=== PATIENT | female | born 1950 | race Caucasian/White ===

== ENCOUNTER 2016-10-10 07:17 | Day surgery (SDC) | payer MEDICARE, OTHER ==
[2016-10-10] MEDS ORDERED: LACTATED RINGERS 1,000 ML IV ONE (07:42)
[2016-10-10] MEDS ORDERED: fentaNYL 100 MCG/2 ML VIAL IVP ONE (08:34)
[2016-10-10] MEDS ORDERED: MIDAZOLAM 2 MG/2 ML VIAL IVP ONE (08:34)
== END 2016-10-10 07:18 | disposition home or self-care (01) ==
PROC: 0DBH8ZX Excision of Cecum, Via Natural or Artificial Opening Endoscopic, Diagnostic (ICD-10-PCS; principal; 2016-10-10 08:30)
DX: R19.4 Change in bowel habit (principal); D12.0 Benign neoplasm of cecum; I10 Essential (primary) hypertension; K21.9 Gastro-esophageal reflux disease without esophagitis
CPT/HCPCS: 45385; J7120

== ENCOUNTER 2016-12-26 09:32 | Day surgery (SDC) | payer MEDICARE, OTHER ==
[2016-12-26] MEDS ORDERED: LACTATED RINGERS 1,000 ML IV ONE ×2 (09:59→12:01)
[2016-12-26] MEDS ORDERED: MIDAZOLAM 2 MG/2 ML VIAL IVP ONE (11:22)
[2016-12-26] MEDS ORDERED: fentaNYL 100 MCG/2 ML VIAL IVP ONE (11:22)
[2016-12-26 12:21] VITALS: BP 98/51
== END 2016-12-26 09:33 | disposition home or self-care (01) ==
LOC: SDS 09:32
PROVIDERS: ATTEND Internal Medicine
PROC: 0DB68ZX Excision of Stomach, Via Natural or Artificial Opening Endoscopic, Diagnostic (ICD-10-PCS; 2016-12-26)
PROC: 0DB58ZX Excision of Esophagus, Via Natural or Artificial Opening Endoscopic, Diagnostic (ICD-10-PCS; principal; 2016-12-26 11:00)
DX: R13.14 Dysphagia, pharyngoesophageal phase (principal); R12 Heartburn; K44.9 Diaphragmatic hernia without obstruction or gangrene; K59.09 Other constipation; I10 Essential (primary) hypertension; Z86.010 Personal history of colon polyps
CPT/HCPCS: 43239; J7120; 88305

== ENCOUNTER 2017-10-10 11:13 | Emergency (ER) | payer MEDICARE, OTHER ==
--- NOTE | 2017-10-10 11:56 | ED Physician Documentation ---
PD HPI ABD PAIN - Stated complaint Stated Complaint: ABDOMAL PX, NAUSEA - Chief complaint Chief Complaint: Abd Pain - History obtained from History obtained from: Patient - History of Present Illness Timing - onset: How many days ago (few) Timing - duration: Days (few) Timing - details: Gradual onset, Still present, Waxing and waning Quality: Cramping, Aching Location: Periumbilical, LLQ Radiation: Lower back Improved by: No: Eating Worsened by: Moving. No: Eating, Palpation Associated symptoms: Constipation (tried Mag Citrate and fleets enema twice yesterday without stool output. Having more cramps today. History of constipation. Did not call her GI.). No: Fever, Nausea, Vomiting, Diarrhea, Dysuria Similar symptoms before: Diagnosis (constipation but usually not as bad as current cramping pains.) Review of Systems Constitutional: denies: Fever, Chills Nose: denies: Rhinorrhea / runny nose, Congestion Throat: denies: Sore throat Cardiac: denies: Chest pain / pressure, Palpitations Respiratory: denies: Dyspnea, Cough GI: reports: Abdominal Pain, Constipation. denies: Abdominal Swelling, Nausea, Vomiting, Diarrhea, Bloody / black stool : denies: Dysuria, Frequency Skin: denies: Rash, Lesions Neurologic: reports: Generalized weakness. denies: Focal weakness, Numbness PD PAST MEDICAL HISTORY - Past Medical History Cardiovascular: Hypertension Respiratory: None Neuro: None Endocrine/Autoimmune: None GI: GERD, Chronic constipation CASINO MANAGER: None : None HEENT: None Psych: None Musculoskeletal: None Derm: Other - Past Surgical History Past Surgical History: Yes General: Colonoscopy Ortho: Rotator cuff repair /CASINO MANAGER: Tubal ligation, Hysterectomy, Other - Present Medications Home Medications: Ambulatory Orders Medication Instructions Recorded Confirmed hydroCHLOROthiazide 25 mg PO DAILY 05/05/16 12/26/16 [Hydrochlorothiazide] Ergocalciferol [Vitamin D2] 50,000 units PO OAW 10/09/16 12/26/16 Lubiprostone [Amitiza] 8 mcg PO BID 10/09/16 12/26/16 Potassium Chloride [K-Dur] 40 meq PO DAILY 10/09/16 12/19/16 Meclizine [Antivert] 1 cap PO PRN PRN 10/10/16 12/26/16 Promethazine [Phenergan] 1 cap PO PRN PRN 10/10/16 12/19/16 Omeprazole 40 mg PO DAILY 12/19/16 12/26/16 Dicyclomine [Bentyl] 10 mg PO QID PRN #10 capsule 10/10/17 Lubiprostone [Amitiza] 10/10/17 raNITIdine [Zantac] 10/10/17 - Allergies Allergies/Adverse Reactions: Allergies Allergy/AdvReac Type Severity Reaction Status Date / Time No Known Drug Allergies Allergy Verified 12/19/16 11:25 - Social History Does the pt smoke?: No Smoking Status: Never smoker Does the pt drink ETOH?: No Does the pt have substance abuse?: No - Family History Family history: reports: Non contributory - Immunizations Immunizations are current?: Yes PD ED PE NORMAL - Vitals Vital signs reviewed: Yes - General General: Alert and oriented X 3, No acute distress, Well developed/nourished - Neck Neck: Supple, no meningeal sign, No adenopathy - Cardiac Cardiac: RRR, No murmur - Respiratory Respiratory: Clear bilaterally - Abdomen Abdomen: Soft, Non distended, No organomegaly, Other (mild tender left abdomen without percussion nor rebound. ). No: Normal bowel sounds (increased and hyperactive) - Female Female : Deferred - Rectal Rectal: Deferred - Back Back: No CVA TTP - Derm Derm: Normal color, Warm and dry Results - Vitals Vitals: Vital Signs - 24 hr 10/10/17 10/10/17 11:17 15:11 Temperature 36.6 C Heart Rate 73 67 Respiratory 17 16 Rate Blood Pressure 150/63 H 131/74 H O2 Saturation 99 99 Oxygen O2 Source Room air - Labs Labs: Laboratory Tests 10/10/17 10/10/17 10/10/17 12:35 12:35 12:50 WBC 5.3 RBC 5.40 Hgb 15.5 Hct 44.8 MCV 82.9 MCH 28.7 MCHC 34.6 RDW 14.3 Plt Count 217 MPV 7.4 L Neut # 3.1 Lymph # 1.7 [place] # 0.4 Eos # 0.1 Baso # 0.1 Absolute Nucleated RBC 0.00 Nucleated RBC % 0.0 ESR 1 Sodium Potassium Chloride Carbon Dioxide Anion Gap BUN Creatinine Estimated GFR (MDRD) Glucose Calcium Magnesium Total Bilirubin AST ALT Alkaline Phosphatase Total Protein Albumin Globulin Albumin/Globulin Ratio Lipase Urine Color YELLOW Urine Clarity CLEAR Urine pH 7.0 Ur Specific [place] 1.010 Urine Protein NEGATIVE Urine Glucose (UA) NEGATIVE Urine Ketones 15 H Urine Occult Blood NEGATIVE Urine Nitrite NEGATIVE Urine Bilirubin NEGATIVE Urine Urobilinogen 0.2 (NORMAL) Ur Leukocyte Esterase NEGATIVE Ur Microscopic Review NOT INDICATED Urine Culture Comments NOT INDICATED 10/10/17 13:09 WBC RBC Hgb Hct MCV MCH MCHC RDW Plt Count MPV Neut # Lymph # [place] # Eos # Baso # Absolute Nucleated RBC Nucleated RBC % ESR Sodium 136 Potassium 3.5 Chloride 98 L Carbon Dioxide 31 Anion Gap 7.0 BUN 8 Creatinine 0.4 Estimated GFR (MDRD) 160 Glucose 95 Calcium 8.9 Magnesium 2.0 Total Bilirubin 0.8 AST 21 ALT 19 Alkaline Phosphatase 45 Total Protein 6.9 Albumin 4.4 Globulin 2.5 Albumin/Globulin Ratio 1.8 Lipase 26 Urine Color Urine Clarity Urine pH Ur Specific [place] Urine Protein Urine Glucose (UA) Urine Ketones Urine Occult Blood Urine Nitrite Urine Bilirubin Urine Urobilinogen Ur Leukocyte Esterase Ur Microscopic Review Urine Culture Comments - Rads (name of study) abd CT Radiology: Prelim report reviewed (stable findings of ovarian cyst, gallstone, varicosities. No acute findings. ), EMP read contemporaneously PD MEDICAL DECISION MAKING - ED course Complexity details: considered differential (could be constipation, but concern for colitis, partial obstruction, UTI, rupturing cyst (has history of stable large ovarian cyst), vascular. Will get labs and CT. ), d/w patient Departure - Departure Disposition: 01 Home, Self Care Clinical Impression: Constipation by delayed colonic transit Abdominal pain Qualifiers: Abdominal location: lower abdomen, unspecified Qualified Code(s): R10.30 - Lower abdominal pain, unspecified Condition: Stable Record reviewed to determine appropriate education?: Yes Instructions: ED Abdominal Pain Unkn Cause, ED Constipation Follow-Up: Deniz Marie DO [Primary Care Provider] - Omar Dominguez MD [Provider Admit Priv/Credential] - Prescriptions: Dicyclomine [Bentyl] 10 mg PO QID PRN #10 capsule PRN Reason: Spasms Comments: Drink lots of fluids. Usual medications. I would suggest using your MiraLAX at home 1 dose (17 g in a glass of water) every hour until he started having loose bowel movements. If still not having bowel movement into tomorrow then contact your GI specialist regarding other advice. Your scans and blood tests appear okay without signs of other cause of the abdominal pain at this point.He can use some naproxen or ibuprofen 2-3 times a day to help with pain and cramps. If need be you can add dicyclomine antispasmodic for worse pains and cramps. Discharge Date/Time: 10/10/17 15:48
[2017-10-10] MEDS ORDERED: SODIUM CHLORIDE 0.9% 1,000 ML IV ONE (12:15)
[2017-10-10] MEDS ORDERED: ONDANSETRON 4 MG/2 ML VIAL IVP STA (12:15)
[2017-10-10] MEDS ORDERED: KETOROLAC 15 MG/ML VIAL IVP STA (12:15)
[2017-10-10] MEDS ORDERED: MINERAL OIL ENEMA 133 ML BOTTLE RC STA (12:15)
[2017-10-10 12:50] LABS: BASOPHILS # (AUTO) 0.1 10^3/uL (0.0-0.1); EOSINOPHILS # (AUTO) 0.1 10^3/uL (0.0-0.7); EOSINOPHILS % (AUTO) 2.4 %; HGB - HEMOGLOBIN 15.5 g/dL (12.0-16.0); LYMPHOCYTES # (AUTO) 1.7 10^3/uL (1.5-3.5); LYMPHOCYTES % (AUTO) 31.4 %; MEAN CORPUSCULAR HEMOGLOBIN 28.7 pg (27.0-31.0); MEAN CORPUSCULAR HGB CONC 34.6 g/dL (32.0-36.0); MEAN CORPUSCULAR VOLUME 82.9 fL (81.0-99.0); MEAN PLATELET VOLUME 7.4 fL (7.9-10.8); MONOCYTES # (AUTO) 0.4 10^3/uL (0.0-1.0); MONOCYTES % (AUTO) 7.4 %; NEUTROPHILS # (AUTO) 3.1 10^3/uL (1.5-6.6); NEUTROPHILS % (AUTO) 57.8 %; PLT - PLATELET COUNT 217 10^3/uL (130-450); RED CELL DISTRIBUTION WIDTH 14.3 % (12.0-15.0); WHITE BLOOD COUNT 5.3 x10^3/uL (4.8-10.8)
[2017-10-10 12:59] LABS: BILIRUBIN,URINE NEGATIVE (NEGATIVE); GLUCOSE, URINE (UA) NEGATIVE (NEGATIVE); KETONES,URINE (UA) 15 mg/dL (NEGATIVE); LEUKOCYTE ESTERASE, URINE NEGATIVE (NEGATIVE); NITRITE,URINE NEGATIVE (NEGATIVE); OCCULT BLOOD,URINE NEGATIVE (NEGATIVE); PROTEIN,URINE NEGATIVE (NEGATIVE); UROBILINOGEN,URINE 0.2 (NORMAL) E.U./dL (NORMAL)
[2017-10-10 13:06] LABS: CLARITY,URINE CLEAR (CLEAR)
[2017-10-10 13:33] LABS: ALBUMIN 4.4 g/dL (3.2-5.5); ALBUMIN/GLOBULIN RATIO 1.8 (1.0-2.2); BILIRUBIN,TOTAL 0.8 mg/dL (0.2-1.0); CALCIUM 8.9 mg/dL (8.5-10.3); CREATININE 0.4 mg/dL (0.4-1.0); TOTAL PROTEIN 6.9 g/dL (6.7-8.2)
[2017-10-10] MEDS ORDERED: IOPAMIDOL-300 100 ML VIAL ONE (14:20)
[2017-10-10] MEDS ORDERED: IOPAMIDOL-300 100 ML VIAL IVP ONE (14:34)
--- NOTE | 2017-10-10 14:53 | CT Preliminary Report ---
Exam: CT ABDOMEN/PELVIS W/ IMPRESSION: 1. Old minimal wedging thoracolumbar junction. 2. Cholelithiasis. 3. 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 4. Stable 3.8 cm left ovarian cyst. 5. Colonic diverticulosis. 6. No radiographic explanation for this lady's presenting symptoms. [facility] SITE ID: [id number]
--- NOTE | 2017-10-10 14:57 | CT Report ---
EXAM: CT ABDOMEN AND PELVIS EXAM DATE: 10/10/2017 02:35 PM. CLINICAL HISTORY: Constipation, nausea, lower back pain greatest on the left, lower abdominal crampin g and bloating for several days. COMPARISONS: 05/05/2016. TECHNIQUE: Routine helical CT imaging was performed through the abdomen and pelvis. IV contrast: ISOV UE 300 100 mL. Enteric contrast: No. Reconstructions: Coronal and sagittal. In accordance with CT protocol optimization, one or more of the following dose reduction techniques w ere utilized for this exam: automated exposure control, adjustment of mA and/or KV based on patient s ize, or use of iterative reconstructive technique. FINDINGS: Lung Bases: Unremarkable. Liver: Normal. No masses. Gallbladder/Bile Ducts: 2.5 cm gallstone within the central aspect of the normal caliber gallbladder lumen. No biliary duct dilatation. Spleen: Normal. Pancreas: Normal. Adrenal Glands: Normal. Kidneys: Normal. No masses or hydronephrosis. Peritoneal Cavity/Bowel: Diverticula off the colon. No free fluid, free air or adenopathy. No masses or acute inflammatory process. The appendix is well visualized and normal. Pelvic Organs: Hysterectomy. Stable thin-walled water density lesion left ovary measuring 3.9 x 3.6 x 3.2 cm. No free fluid. No right adnexal finding. No stones in the small caliber urinary bladder. Vasculature: Enlarged tortuous right greater saphenous vein unchanged, consistent with extensive righ t lower leg varicosities. No aneurysms or other significant abnormality. Bones: Old mild wedging T12 and L1. Other: None. IMPRESSION: 1. Old minimal wedging thoracolumbar junction. 2. Cholelithiasis. 3. 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 4. Stable 3.8 cm left ovarian cyst. 5. Colonic diverticulosis. 6. No radiographic explanation for this lady's presenting symptoms. [facility] Referring Provider Line: [phone] SITE ID: [id number]
[2017-10-10 15:12] VITALS: BP 131/74
== END 2017-10-10 15:48 | disposition home or self-care (01) ==
LOC: ED 11:13
DX: K59.01 Slow transit constipation (principal); I10 Essential (primary) hypertension; K21.9 Gastro-esophageal reflux disease without esophagitis
CPT/HCPCS: 36415; 74177; 80053; 81003; 83690; 83735; 85025; 85651; 96361; 96374; 96375; 99283; 99284; A9270; Q9967; 81001; 87086

== ENCOUNTER 2017-11-12 07:24 | Day surgery (SDC) | payer MEDICARE, OTHER ==
[~2017-11-12 07:24] MED LIST: ceFAZolin 2 GM/50 ML 2 GM/50 ML BAG IV ONE
[2017-11-12] MEDS ORDERED: LACTATED RINGERS 1,000 ML IV ONE ×4 (07:29→14:47)
[2017-11-12] MEDS ORDERED: SCOPOLAMINE PATCH TOP ONE (07:59)
[2017-11-12] MEDS ORDERED: BUPIVACAINE 0.5% PF 30 ML VIAL ONE (09:31)
[2017-11-12] MEDS ORDERED: BUPIVACAINE 0.5% PF 30 ML VIAL INFIL ONE (10:14)
[2017-11-12] MEDS: fentaNYL 100 MCG/2 ML VIAL ONE ×2 (11:25→11:38)
--- NOTE | 2017-11-12 11:25 | OPERATIVE REPORT ---
Operative Report - General Procedure Date: 11/12/17 Planned Procedure: RIGHT inguinal herniorrhaphy Pre-Op Diagnosis: RIGHT inguinal hernia Procedure Performed: RIGHT direct inguinal herniorrhaphy with mesh Post Op Diagnosis: RIGHT direct inguinal hernia - Procedure Note Primary Surgeon: Serge Jones MD Anesthesia Provider: Josh Vegas CRNA Anesthesia Technique: General LMA, Local (30 mL 1/2% marcaine) IV Fluids (mL): 500 Estimated Blood Loss (mL): 5 Complications: None. - Other Other Information/Narrative: OPERATIVE DESCRIPTION/REPORT: After verbal and written informed consent was obtained detailing the risks of infection, bleeding requiring transfusion with its risks, nerve injury, and , and after I met with the patient confirming the surgery and the site of the surgery and after initialing the site of the surgery with a surgical marker , the patient was brought to the operative suite and placed supine on the operating table. Great care was taken to avoid pressure points to prevent pressure necrosis or nerve injury. Monitoring devices were applied along with TEDs and pneumatic compressive stockings (to prevent DVT). The patient received preoperative antibiotics for surgical prophylaxis. Josh Vegas sedated and anesthetized the patient for the entire procedure. The patient was prepped and draped in the usual sterile manner. With the patient draped my initials were clearly visible. A "time in" then confirmed that the patient was identified with 3 identifiers (name, date and medical record number), the history and physical was in the chart, the signed consent confirming the procedure was in the chart, the patient was in the correct position, the aforementioned prophylactic measures were in place or given, we had the correct personnel and equipment to complete the procedure and that anesthesia, surgery and nursing were given an opportunity to express any concerns. With the agreement of everyone in the room, we proceeded with the operation. A standard inguinal incision was made and dissection was carried down to the external oblique aponeurosis using a combination of Metzenbaum scissors and Bovie electrocautery. The external oblique aponeurosis was cleared of overlying adherent tissue, and the external ring was delineated. The external oblique was the incised with a scalpel and this incision was carried out to the external ring using Metzenbaum scissors. Having exposed the inguinal canal, the cord structures were from the canal using blunt dissection, and the round ligament was transected in order to get it out of my way. No indirect inguinal hernia was found despite extensive investigation. The hernia was found coming from the floor of the inguinal canal medial to the inferior epigastric vessels. This was dissected back to the hernia opening. The hernia was inverted back into the abdominal cavity and an extra large Bard Perfix plug (Ref# [id number], Lot# [id number], use by date 2022-07-21) inserted into the hernia defect. The plug was secured to the edge of the hernia defect using interrupted 2-0 PDS sutures. This permitted the floor of the inguinal canal to be repaired without the hernia in my way. The Perfix enlay patch was then placed on the floor of the inguinal canal and secured superiorly to the conjoined tendon and inferiorly to the shelving edge of [place] ligament using interrupted 2-0 PDS sutures. At the pubic tubercle a 2-0 PDS stitch was used to secure the mesh. The mesh was secured over the internal ring. The wound was then irrigated using sterile saline, and hemostasis was obtained using Bovie electrocautery. The incision in the external oblique was approximated using a 2-0 Vicryl in a running fashion, thus reforming the external ring. The skin incision was approximated with 4-0 Monocryl in a subcuticular fashion. The skin was prepped with benzoin and steristrips were applied. At this point a time out was performed that confirmed that all the counts were correct, the procedure that was performed, the blood loss, the IV fluids administered, and the patients condition. A dressing was then applied. Having tolerated the procedure well, the patient was taken to recovery room in good and stable condition.
[2017-11-12] MEDS: HYDROmorphone 1 MG/ML CARPUJECT ONE ×2 (11:33→12:02)
[2017-11-12] MEDS ORDERED: ONDANSETRON 4 MG/2 ML VIAL ONE (11:37)
[2017-11-12] MEDS ORDERED: PROPOFOL 200 MG/20 ML VIAL IVP ONE (12:00)
[2017-11-12] MEDS ORDERED: fentaNYL 100 MCG/2 ML VIAL IVP ONE (12:00)
[2017-11-12] MEDS ORDERED: KETOROLAC 30 MG/ML VIAL IVP ONE (12:00)
[2017-11-12] MEDS ORDERED: LIDOCAINE-MPF 2% 5 ML VIAL IM ONE (12:00)
[2017-11-12] MEDS ORDERED: ONDANSETRON 4 MG/2 ML VIAL IVP ONE (12:00)
[2017-11-12] MEDS ORDERED: MIDAZOLAM 2 MG/2 ML VIAL IVP ONE (12:00)
[2017-11-12] MEDS ORDERED: DEXAMETHASONE 4 MG/ML VIAL IVP ONE (12:00)
[2017-11-12] MEDS ORDERED: ePHEDrine 50 MG/ML VIAL IVP ONE (12:00)
[2017-11-12] MEDS ORDERED: NALBUPHINE 20 MG/ML AMP IVP ONE (14:45)
[2017-11-12] MEDS: NALBUPHINE 20 MG/ML AMP ONE ×2 (14:48→15:05)
[2017-11-12] MEDS ORDERED: PROMETHAZINE 25 MG/1 ML VIAL ONE (15:21)
[2017-11-12 16:23] VITALS: BP 124/70
[2017-11-12] MEDS ORDERED: PROMETHAZINE INJ 6.25 MG in SODIUM CHLORIDE 0.9% 50 ML IV PRN (16:46)
[2017-11-12] MEDS: HYDROmorphone 0.5 MG/0.5 ML SYRINGE IVP PRN ×2 (17:38→21:16)
[2017-11-12] MEDS: ONDANSETRON 4 MG/2 ML VIAL IVP PRN (17:39)
[2017-11-12] MEDS: LACTATED RINGERS 1,000 ML IV SCH (21:16)
[2017-11-13] MEDS: ONDANSETRON 4 MG/2 ML VIAL IVP PRN (00:51)
[2017-11-13] MEDS: HYDROmorphone 0.5 MG/0.5 ML SYRINGE IVP PRN (00:51)
[2017-11-13] MEDS: oxyCOD/ACETAMIN 5 MG/325 MG TABLET PO PRN ×2 (04:01→07:51)
[2017-11-13] MEDS ORDERED: SODIUM CHLORIDE FLUSH 0.9% 10 ML SYRINGE ONE (09:12)
[2017-11-13] MEDS: LACTATED RINGERS 1,000 ML IV SCH (09:27)
== END 2017-11-13 09:50 | disposition home or self-care (01) ==
LOC: SDS 07:24 → OBS 12:40 → UNDOADMOB 12:40 → OBS 16:00 → SDS 11-13 09:50 → UNDODISOB 11-13 09:50
PROVIDERS: ATTEND Surgery
PROC: 0YU50JZ Supplement Right Inguinal Region with Synthetic Substitute, Open Approach (ICD-10-PCS; principal; 2017-11-12 08:30)
DX: K40.90 Unilateral inguinal hernia, without obstruction or gangrene, not specified as recurrent (principal); I10 Essential (primary) hypertension; E78.5 Hyperlipidemia, unspecified; K21.9 Gastro-esophageal reflux disease without esophagitis; R11.0 Nausea
CPT/HCPCS: 49505; A9270; C1781; J0690; J1170; J3490; J7120

== ENCOUNTER 2018-01-14 16:17 | Emergency (ER) | payer MEDICARE, OTHER ==
[2018-01-14 16:40] VITALS: BP 153/83
== END 2018-01-14 17:15 | disposition left against medical advice (07) ==
LOC: ED 16:17
DX: Z53.21 Procedure and treatment not carried out due to patient leaving prior to being seen by health care provider (principal)

== ENCOUNTER 2019-03-23 15:56 | Outpatient (CLI) | payer MEDICARE, OTHER | END 2019-03-23 15:57 | disposition critical access hospital (66) | LOC: EMS 15:56 | PROVIDERS: ATTEND Surgery | DX: R42 Dizziness and giddiness (principal); R11.0 Nausea | CPT/HCPCS: A0425; A0427 ==

== ENCOUNTER 2019-03-23 16:37 | Emergency (ER) | payer MEDICARE, OTHER ==
[2019-03-23] MEDS ORDERED: MECLIZINE 12.5 MG TABLET PO STA ×2 (16:53→19:41)
[2019-03-23] MEDS ORDERED: ONDANSETRON ODT 4 MG TABLET TL STA (16:53)
[2019-03-23] MEDS ORDERED: SODIUM CHLORIDE 0.9% 1,000 ML IV ONE (17:09)
[2019-03-23] MEDS ORDERED: PROMETHAZINE INJ 25 MG in SODIUM CHLORIDE 0.9% 50 ML IV STA (17:09)
[2019-03-23 17:28] LABS: BASOPHILS # (AUTO) 0.1 10^3/uL (0.0-0.1); BASOPHILS % (AUTO) 0.5 %; EOSINOPHILS # (AUTO) 0.1 10^3/uL (0.0-0.7); EOSINOPHILS % (AUTO) 0.5 %; HGB - HEMOGLOBIN 14.9 g/dL (12.0-16.0); LYMPHOCYTES # (AUTO) 1.3 10^3/uL (1.5-3.5); LYMPHOCYTES % (AUTO) 13.1 %; MEAN CORPUSCULAR HEMOGLOBIN 28.9 pg (27.0-31.0); MEAN CORPUSCULAR HGB CONC 33.9 g/dL (32.0-36.0); MEAN CORPUSCULAR VOLUME 85.3 fL (81.0-99.0); MEAN PLATELET VOLUME 9.3 fL (7.9-10.8); MONOCYTES # (AUTO) 0.3 10^3/uL (0.0-1.0); MONOCYTES % (AUTO) 3.4 %; NEUTROPHILS # (AUTO) 8.2 10^3/uL (1.5-6.6); PLT - PLATELET COUNT 261 10^3/uL (130-450); RED BLOOD COUNT 5.16 10^6/uL (4.20-5.40); RED CELL DISTRIBUTION WIDTH 13.4 % (12.0-15.0)
[2019-03-23 17:38] LABS: ALBUMIN 4.6 g/dL (3.2-5.5); ALBUMIN/GLOBULIN RATIO 1.7 (1.0-2.2); BILIRUBIN,TOTAL 0.7 mg/dL (0.2-1.0); CALCIUM 9.3 mg/dL (8.5-10.3); CREATININE 0.6 mg/dL (0.4-1.0); TOTAL PROTEIN 7.3 g/dL (6.7-8.2)
--- NOTE | 2019-03-23 17:42 | ED Physician Documentation ---
History of Present Illness - Stated complaint Stated Complaint: LIGHTHEADED, NAUSEA - Chief complaint Chief Complaint: Abd Pain - History obtained from History obtained from: Patient, Family - History of Present Illness Timing: Today Pain level max: 0 Pain level now: 0 - Additonal information Additional information: 68-year-old female presents the emergency department stating that she was with her sister who is having "end-of-life issues". Today she started to feel shaky and then nauseated and feels similar to her vertigo in the past without the vertiginous symptoms of dizziness. No history of anxiety that she knows of. Nothing makes it better or worse. Review of Systems Ten Systems: 10 systems reviewed and negative Constitutional: denies: Fever, Chills Cardiac: denies: Chest pain / pressure Respiratory: denies: Cough Skin: denies: Rash Musculoskeletal: denies: Neck pain, Back pain Neurologic: reports: Numbness (states has intermittent tingling to the LLE for the past week or two.). denies: Focal weakness, Confused, Altered mental status, Headache PD PAST MEDICAL HISTORY - Past Medical History Cardiovascular: Hypertension, High cholesterol Respiratory: None Endocrine/Autoimmune: None GI: GERD, Chronic diarrhea, Chronic constipation, Cholelithiasis CAT SITTER: None : None HEENT: Other Psych: Depression Musculoskeletal: None Derm: Other - Past Surgical History Past Surgical History: Yes General: Colonoscopy, EGD Ortho: Rotator cuff repair /CAT SITTER: Tubal ligation, Hysterectomy, Oophrectomy, Other - Present Medications Home Medications: Ambulatory Orders Medication Instructions Recorded Confirmed hydroCHLOROthiazide 12.5 mg PO DAILY 05/05/16 11/12/17 [Hydrochlorothiazide] Ergocalciferol [Vitamin D2] 50,000 units PO OAW 10/09/16 11/12/17 Potassium Chloride [K-Dur] 20 meq PO DAILY 10/09/16 11/12/17 Calcium Carbonate/Vitamin D3 1 each PO DAILY 11/11/17 11/12/17 [Calcium 600-Vit D3 800 Tablet] Cyanocobalamin (Vitamin B-12) 0 mcg PO DAILY 11/11/17 11/12/17 [Vitamin B-12] Linaclotide [Linzess] 290 mcg PO DAILY 11/11/17 11/12/17 Polyethylene Glycol 3350 [Miralax] 17 gm PO DAILY 11/11/17 11/12/17 Pantoprazole Sodium 40 mg PO DAILY 11/12/17 11/12/17 Meclizine [Antivert] 25 mg PO Q6H PRN #30 tablet 03/23/19 Ondansetron Odt [Zofran] 4 mg TL Q6H PRN #10 tablet 03/23/19 - Allergies Allergies/Adverse Reactions: Allergies Allergy/AdvReac Type Severity Reaction Status Date / Time No Known Drug Allergies Allergy Verified 03/23/19 16:45 - Social History Does the pt smoke?: No Smoking Status: Never smoker Does the pt drink ETOH?: No Does the pt have substance abuse?: No - Immunizations Immunizations are current?: Yes PD ED PE NORMAL - Vitals Vital signs reviewed: Yes - General General: Alert and oriented X 3, Other (eyes closed, holding an emesis bag) - HEENT HEENT: Atraumatic, PERRL, Ears normal, Pharynx benign, Other (horizontal nystagmus to the L, +hallpike) - Neck Neck: Supple, no meningeal sign, No bony TTP - Cardiac Cardiac: RRR, Strong equal pulses - Respiratory Respiratory: No respiratory distress, Clear bilaterally - Abdomen Abdomen: Soft, Non tender, Non distended - Derm Derm: Warm and dry, No rash - Extremities Extremities: No calf tenderness / cord - Neuro Neuro: Alert and oriented X 3, fudge candy maker 2-12 intact, No motor deficit, No sensory deficit, Normal speech Eye Opening: Spontaneous Motor: Obeys Commands Verbal: Oriented GCS Score: 15 - Psych Psych: Normal mood, Normal affect Results - Vitals Vitals: Oxygen O2 Source Room air - EKG (time done) 1722 Rate: Rate (enter#) (63) Rhythm: NSR [place]mer: Normal Intervals: Normal AR QRS: Normal Ischemia: Normal ST segments - Labs Labs: Laboratory Tests 03/23/19 03/23/19 03/23/19 17:15 17:15 19:30 WBC 10.0 RBC 5.16 Hgb 14.9 Hct 44.0 MCV 85.3 MCH 28.9 MCHC 33.9 RDW 13.4 Plt Count 261 MPV 9.3 Neut # (Auto) 8.2 H Lymph # (Auto) 1.3 L [place] # (Auto) 0.3 Eos # (Auto) 0.1 Baso # (Auto) 0.1 Absolute Nucleated RBC 0.00 Nucleated RBC % 0.0 Sodium 139 Potassium 2.9 L Chloride 100 L Carbon Dioxide 25 Anion Gap 14.0 H BUN 10 Creatinine 0.6 Estimated GFR (MDRD) 99 Glucose 182 H Calcium 9.3 Total Bilirubin 0.7 AST 24 ALT 16 Alkaline Phosphatase 48 Total Protein 7.3 Albumin 4.6 Globulin 2.7 Albumin/Globulin Ratio 1.7 Lipase 30 Urine Color YELLOW Urine Clarity CLEAR Urine pH 6.5 Ur Specific [place] 1.015 Urine Protein NEGATIVE Urine Glucose (UA) NEGATIVE Urine Ketones 40 H Urine Occult Blood NEGATIVE Urine Nitrite NEGATIVE Urine Bilirubin NEGATIVE Urine Urobilinogen 0.2 (NORMAL) Ur Leukocyte Esterase NEGATIVE Ur Microscopic Review NOT INDICATED Urine Culture Comments NOT INDICATED - Rads (name of study) head CT Radiology: Prelim report reviewed, EMP read contemporaneously, See rad report (no acute intracranial abnormality) PD MEDICAL DECISION MAKING - ED course Complexity details: reviewed results, re-evaluated patient, considered differential, d/w patient ED course: Patient with vomiting today. 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 She feels better after meclizine, Ativan, Phenergan. Tolerating p.o. without difficulty. Ambulating well. No focal neurological deficits. No evidence of stroke, tumor. She is hypokalemic and this was replaced. She will follow-up with her doctor for further care. Patient counseled regarding signs and symptoms for which I believe and urgent re-evaluation would be necessary. Patient with good understanding of and agreement to plan and is comfortable going home at this time This document was made in part using voice recognition software. While efforts are made to proofread this document, sound alike and grammatical errors may occur. Departure - Departure Disposition: 01 Home, Self Care Clinical Impression: Vertigo, Hypokalemia Vomiting Qualifiers: Vomiting type: unspecified Vomiting Intractability: non-intractable Nausea presence: with nausea Qualified Code(s): R11.2 - Nausea with vomiting, unspecified Condition: Good Instructions: ED Potassium Deficiency, ED Vertigo Unspecified Follow-Up: Nayeli Tucker MD [Primary Care Provider] - Within 1 week Prescriptions: Meclizine [Antivert] 25 mg PO Q6H PRN #30 tablet PRN Reason: Vertigo Ondansetron Odt [Zofran] 4 mg TL Q6H PRN #10 tablet PRN Reason: Nausea / Vomiting Comments: You should have your potassium rechecked with your doctor in 3 to 4 days. Return if you worsen. Remove the scopolamine patch after 3 days. Discharge Date/Time: 03/23/19 22:11
[2019-03-23] MEDS ORDERED: POTASSIUM CHLORIDE 20 MEQ TABLET PO STA (17:45)
[2019-03-23] MEDS ORDERED: LORazepam 2 MG/ML VIAL IVP STA (18:56)
[2019-03-23 19:42] LABS: BILIRUBIN,URINE NEGATIVE (NEGATIVE); GLUCOSE, URINE (UA) NEGATIVE (NEGATIVE); KETONES,URINE (UA) 40 mg/dL (NEGATIVE); LEUKOCYTE ESTERASE, URINE NEGATIVE (NEGATIVE); NITRITE,URINE NEGATIVE (NEGATIVE); OCCULT BLOOD,URINE NEGATIVE (NEGATIVE); PH,URINE 6.5 PH (5.0-7.5); PROTEIN,URINE NEGATIVE (NEGATIVE); UROBILINOGEN,URINE 0.2 (NORMAL) E.U./dL (NORMAL)
[2019-03-23 19:45] LABS: CLARITY,URINE CLEAR (CLEAR)
--- NOTE | 2019-03-23 20:32 | CT Report ---
Reason: dizzy, vomiting, Procedure Date: 03/23/2019 Accession Number: [id number] / [id number] Procedure: CT - HEAD WO CPT Code: FULL RESULT: EXAM: CT HEAD EXAM DATE: 03/23/2019 08:05 PM. CLINICAL HISTORY: Dizzy, vomiting. COMPARISON: HEAD W/O 03/30/2015 3:18 PM. TECHNIQUE: Multiaxial CT images were obtained from the foramen magnum to the vertex. Reformats: Sagittal and coronal. IV contrast: None. In accordance with CT protocol optimization, one or more of the following dose reduction techniques were utilized for this exam: automated exposure control, adjustment of mA and/or KV based on patient size, or use of iterative reconstructive technique. FINDINGS: Parenchyma: No intraparenchymal hemorrhage. No evidence of mass, midline shift, or CT findings of infarction. Drake-white differentiation is distinct. Extraaxial Spaces: Normal for age. No subdural or epidural collections identified. Ventricles: Normal in size and position. Sinuses and Orbits: Imaged paranasal sinuses, orbits, and mastoids show no significant abnormality. Bones: No evidence of fracture or calvarial defect. Other: None. IMPRESSION: Stable negative head CT. [facility]
[2019-03-23] MEDS ORDERED: ONDANSETRON 4 MG/2 ML VIAL IVP STA (21:18)
[2019-03-23] MEDS ORDERED: SCOPOLAMINE PATCH TOP STA (21:18)
[2019-03-23 22:11] VITALS: BP 132/60
== END 2019-03-23 22:11 | disposition home or self-care (01) ==
LOC: EDUNIT# → EDBD → ED 16:37
DX: R42 Dizziness and giddiness (principal); E87.6 Hypokalemia; R11.2 Nausea with vomiting, unspecified; I10 Essential (primary) hypertension
CPT/HCPCS: 36415; 70450; 80053; 81003; 83690; 85025; 93005; 96365; 96375; 99284; A9270; J2060; J3490; J7040; 81001; 87086

== ENCOUNTER 2019-06-03 16:21 | Outpatient (CLI) | payer MEDICARE, OTHER ==
[2019-06-03] MEDS ORDERED: GADOBUTROL 10 MMOL/10 ML VIAL ONE (16:58)
[2019-06-03] MEDS ORDERED: GADOBUTROL 10 MMOL/10 ML VIAL IVP ONE (17:44)
--- NOTE | 2019-06-04 08:24 | MRI Report ---
Reason: DIZZINESS, NEUROLOGICAL CHANGES Procedure Date: 06/03/2019 Accession Number: [id number] / [id number] Procedure: MRI - Brain W/WO CPT Code: Final Report FULL RESULT: EXAM: MRI BRAIN WITHOUT AND WITH CONTRAST EXAM DATE: 06/03/2019 06:10 PM. CLINICAL HISTORY: DIZZINESS, NEUROLOGICAL CHANGES. COMPARISON: BRAIN W/WO 02/10/2015 1:22 PM HEAD W/O 03/23/2019 8:03 PM BRAIN/IACS W/WO 05/09/2015 1:23 PM. TECHNIQUE: Multiplanar, multisequence T1-weighted and fluid-sensitive MR sequences of the brain were performed before and after administration of intravenous contrast. Sequences optimized for routine evaluation. Other: None. IV Contrast: Yes, without and with 10 mL Gadavist. FINDINGS: Parenchyma: No acute hemorrhage, mass, or infarct. No white matter lesions identified. No abnormal enhancement. Ventricles/Cisterns: Mild enlargement of lateral ventricles. Diffuse prominence of sulci. No abnormal extra-axial fluid collection or hemorrhage. Orbits: Symmetric and unremarkable. Sella [place]: Unremarkable. IAC: Symmetric and unremarkable. Vasculature: Normal signal flow void is seen in the major arterial structures at the skull base. The dural sinuses are patent and enhance normally. Sinuses: Well aerated. Bones: No focal pathologic appearing marrow signal changes. Other: None. IMPRESSION: 1. No evidence of mass, infarct, or other acute abnormality. 2. Unchanged brain MRI with mild diffuse volume loss. No new abnormality. [facility]
== END 2019-06-03 16:22 | disposition home or self-care (01) ==
LOC: DI 16:21
PROVIDERS: ATTEND Family Medicine
DX: R42 Dizziness and giddiness (principal)
CPT/HCPCS: 70553; A9585

== ENCOUNTER 2020-04-17 13:00 | Outpatient (CLI) | payer MEDICARE, OTHER ==
--- NOTE | 2020-04-17 13:51 | XRAY Report ---
PROCEDURE: Hand 3 View LT INDICATIONS: CONTUSION OF LEFT HAND TECHNIQUE: 3 views of the hand(s) acquired. COMPARISON: None FINDINGS: Bones: No fractures or dislocations. Moderate degenerative changes present at the first CMC joint. N o suspicious bony lesions. Soft tissues: No suspicious soft tissue calcifications. IMPRESSION: No acute fracture or dislocation. If pain persists, consider repeat imaging in 5-7 days to exclude oc cult fracture. Reviewed by: Dayan Grider MD on 04/17/2020 1:50 PM PDT Approved by: Dayan Grider MD on 04/17/2020 1:50 PM PDT Station ID: [id number]
== END 2020-04-17 23:59 | disposition home or self-care (01) ==
LOC: DI.S 13:00
PROVIDERS: ATTEND Emergency Medicine
DX: S60.222A Contusion of left hand, initial encounter (principal)

== ENCOUNTER 2020-05-16 17:55 | Outpatient (CLI) | payer MEDICARE, OTHER ==
--- NOTE | 2020-05-16 18:02 | XRAY Report ---
PROCEDURE: Hand 3 View LT INDICATIONS: L HAND PX TECHNIQUE: 3 views of the hand(s) acquired. COMPARISON: X-ray hand 04/17/2020 FINDINGS: Bones: As identified on prior exam, there are several areas of punctate calcifications at the base of the distal third phalanx. These appear old. There is a very ill-defined nondisplaced lucency at the base of the fifth metacarpal. It is not seen on all images. In addition, there is a cortical irregula rity at the base of the fourth metacarpal. No suspicious bony lesions. Soft tissues: No suspicious soft tissue calcifications. IMPRESSION: 1. Ill-defined nondisplaced lucency seen only on one image at the base of the fifth metacarpal. Fract ure in this region cannot be definitively excluded. 2. Ill-defined cortical irregularity at the base of the fourth metacarpal. Fracture cannot be exclude d. Short interval imaging follow up if pain is present at the fourth or fifth metacarpal base in 10 d ays for continued evaluation. As clinically indicated, CT may be obtained. Reviewed by: Meryl Orta MD on 05/16/2020 5:01 PM [place] Approved by: Meryl Orta MD on 05/16/2020 5:01 PM [facility] Station ID: [id number]
== END 2020-05-16 23:59 | disposition home or self-care (01) ==
LOC: DI.N 17:55
PROVIDERS: ATTEND Orthopaedic Surgery
DX: M79.642 Pain in left hand (principal)

== ENCOUNTER 2020-10-08 12:46 | Outpatient (CLI) | payer MEDICARE, OTHER ==
--- NOTE | 2020-10-08 16:26 | CT Report ---
PROCEDURE: Sinuses INDICATIONS: L MAXILLARY SINUSITIS TECHNIQUE: Noncontrast 3.0 mm axial images acquired from the frontal sinuses to the mid-sella, with coronal and sagittal reformats. For radiation dose reduction, the following was used: automated exposure control , adjustment of mA and/or kV according to patient size. COMPARISON: None. FINDINGS: Image quality: Excellent. Mild mucosal thickening noted in the floor of the right maxillary sinus. Small mucous retention cyst versus polyp noted in the left maxillary sinus. No air-fluid levels identified in the paranasal sinus es. The ostiomeatal units are patent bilaterally. No osseous thickening, osseous remodeling or osseou s erosive changes. Nasal septum is midline. No malachi bullosa or paradoxical turbinates. Type II cribriform plate. There is slight variance in the ethmoid roof anatomy with the right cribriform plate situated approximatel y 1 mm inferior to the left cribriform plate. Anterior ethmoid artery notches are protected bilateral ly. Type III left frontal recess cells. IMPRESSION: 1. Mild right maxillary sinus mucosal thickening. 2. Small left maxillary sinus mucous retention cyst versus polyp. 3. No paranasal sinus air-fluid levels. Reviewed by: Beryl Saldana MD, PhD on 10/08/2020 4:24 PM PDT Approved by: Beryl Saldana MD, PhD on 10/08/2020 4:24 PM PDT Station ID: [id number]
== END 2020-10-08 12:47 | disposition home or self-care (01) ==
LOC: DI 12:46
PROVIDERS: ATTEND Otolaryngology Otolaryngology/Facial Plastic Surgery
DX: J32.0 Chronic maxillary sinusitis (principal)

== ENCOUNTER 2020-11-09 11:31 | Outpatient (CLI) | payer MEDICARE, OTHER ==
[2020-11-09 12:02] LABS: CREATININE 0.7 mg/dL (0.4-1.0)
[2020-11-09] MEDS ORDERED: IOVERSOL 320 100 ML VIAL IVP ONE ×2 (12:20→14:36)
--- NOTE | 2020-11-09 14:14 | CT Report ---
PROCEDURE: SOFT TISSUE NECK W INDICATIONS: DYSPHAGIA CONTRAST: IV CONTRAST: Optiray 320 ml: 100 PO CONTRAST: *NO PO CONTRAST TECHNIQUE: After the administration of intravenous contrast, 3.0 mm axial sections acquired from the sella to th e aortic arch. Additional oblique axial 3.0 mm sections acquired through the pharynx. 3 mm thick co madhav reformats were generated. For radiation dose reduction, the following was used: automated exp osure control, adjustment of mA and/or kV according to patient size. COMPARISON: Correlation is made with the overlapping portions of the sinus CT, 10/08/[address] , 03/23/2019. FINDINGS: Image quality: Excellent. Lymph nodes: No enlarged lymph nodes seen throughout the neck. Vessels: Visualized vasculature appears patent. Neck spaces: The oropharynx, nasopharynx, and pharynx demonstrate no mucosal lesions. The vocal cor ds, false vocal cords, pyriform sinuses, epiglottis, vallecula, and tongue base all appear normal. E xtramucosal spaces appear unremarkable. Glands: The parotid and submandibular glands appear normal. The thyroid is normal in size and there are no significant incidental findings. Miscellaneous: Visualized brain and orbits appear normal. Lung apices appear clear. Superficial so ft tissues appear normal. Bones: No suspicious bony lesions. Visualized sinuses and mastoids appear unremarkable. Mild dextr oconvex cervicothoracic sclerotic curvature is seen. Degenerative changes are seen, which are overall worst at the C6-C7 level. IMPRESSION: No imaging explanation is found for the patient's presenting symptoms. No masses are seen. No enlarged lymph nodes are detected. Reviewed by: Zen Ivory MD on 11/09/2020 1:13 PM [facility]ATELYN Approved by: Zen Ivory MD on 11/09/2020 1:13 PM AK[facility] Station ID: [id number]
== END 2020-11-09 11:32 | disposition home or self-care (01) ==
LOC: LAB 11:31 → DI 11:32
PROVIDERS: ATTEND Otolaryngology Otolaryngology/Facial Plastic Surgery
DX: R13.10 Dysphagia, unspecified (principal); J35.1 Hypertrophy of tonsils
CPT/HCPCS: 36415; 70491; 82565; Q9967

== ENCOUNTER 2020-11-29 16:24 | Observation (INO) | payer MEDICARE, OTHER ==
[2020-11-29 17:33] LABS: BASOPHILS # (AUTO) 0.1 10^3/uL (0.0-0.1); BASOPHILS % (AUTO) 0.8 %; EOSINOPHILS # (AUTO) 0.1 10^3/uL (0.0-0.7); EOSINOPHILS % (AUTO) 1.6 %; HCT - HEMATOCRIT 44.9 % (37.0-47.0); HGB - HEMOGLOBIN 15.2 g/dL (12.0-16.0); LYMPHOCYTES # (AUTO) 1.9 10^3/uL (1.5-3.5); LYMPHOCYTES % (AUTO) 30.1 %; MEAN CORPUSCULAR HEMOGLOBIN 29.1 pg (27.0-31.0); MEAN CORPUSCULAR HGB CONC 33.9 g/dL (32.0-36.0); MONOCYTES # (AUTO) 0.4 10^3/uL (0.0-1.0); MONOCYTES % (AUTO) 5.9 %; NEUTROPHILS % (AUTO) 61.4 %; PLT - PLATELET COUNT 220 10^3/uL (130-450); RED BLOOD COUNT 5.22 10^6/uL (4.20-5.40); RED CELL DISTRIBUTION WIDTH 13.7 % (12.0-15.0); WHITE BLOOD COUNT 6.4 x10^3/uL (4.8-10.8)
[2020-11-29 17:47] LABS: ALBUMIN 5.1 g/dL (3.2-5.5); ALBUMIN/GLOBULIN RATIO 1.9 (1.0-2.2); CALCIUM 9.8 mg/dL (8.5-10.3); CREATININE 0.6 mg/dL (0.4-1.0); POTASSIUM 3.2 mmol/L (3.5-5.0); TOTAL PROTEIN 7.8 g/dL (6.7-8.2)
--- NOTE | 2020-11-29 17:48 | ED Physician Documentation ---
PD HPI FOCAL NEURO - Stated complaint Stated Complaint: VISION CHANGES/LT SIDED WEAKNESS - Chief complaint Chief Complaint: General - History obtained from History obtained from: Patient, Family - History of Present Illness Timing - onset: How many days ago (3) Timing - duration: Days (3) Timing - details: Intermittant Weakness: Arm, Hand, Leg, Foot, Left Numbness: Arm, Hand, Leg, Foot, Left Associated symptoms: No: Headache, Nausea / vomiting, Seizure, Syncope, Fall, Head injury, Chest pain, Neck pain, Back pain Contributing factors: negative: Anticoagulated, Vascular dz, Atrial fibrillation Baseline status: positive: A&OX3, ambulatory, indep - Additional information Additional information: 69-year-old female presents with her to the emergency department she states that about 3 days ago she woke up in the morning and could not move her left arm. She states that she thought that was odd but was not too concerned about it because she was tired. She states that she went back to bed and when she woke up her arm was moving normally. Since that time she had another episode where her left arm felt heavy and weak, this lasted for about an hour. Today she states similar symptoms recurred at about 1:00 today when she was writing a letter. She states that her left leg and left arm feel heavy. She states she has had difficulty with word finding recently as well. She states that her vision was blurry earlier today, it is currently normal. No history of strokes. Nothing makes this better or worse. Denies any trauma. No chest pain. No shortness of breath. Review of Systems Ten Systems: 10 systems reviewed and negative Constitutional: denies: Fever, Chills Ears: denies: Ear pain Nose: denies: Rhinorrhea / runny nose, Congestion Respiratory: denies: Cough GI: denies: Nausea, Vomiting, Diarrhea Skin: denies: Rash Musculoskeletal: denies: Neck pain, Back pain Neurologic: denies: Near syncope, Seizure, Headache, Head injury, LOC PD PAST MEDICAL HISTORY - Past Medical History Past Medical History: Yes Cardiovascular: Hypertension, High cholesterol Respiratory: None Neuro: None Endocrine/Autoimmune: None GI: GERD, Chronic diarrhea, Chronic constipation, Cholelithiasis MICA SPREADER: Ovarian cysts : None HEENT: Other Psych: Depression Musculoskeletal: Osteoarthritis Derm: Other Other Past Medical History: IBS - Past Surgical History Past Surgical History: Yes General: Colonoscopy, EGD Ortho: Rotator cuff repair /MICA SPREADER: Tubal ligation, Hysterectomy, Oophrectomy, Other - Present Medications Home Medications: Ambulatory Orders Medication Instructions Recorded Confirmed Potassium Chloride [K-Dur] 20 meq PO BID 10/09/16 11/29/20 Meclizine [Antivert] 25 mg PO Q6H PRN #30 tablet 03/23/19 11/29/20 Ondansetron Odt [Zofran] 4 mg TL Q6H PRN #10 tablet 03/23/19 11/29/20 Amlodipine Besylate [Norvasc] 10 mg PO DAILY 11/29/20 11/29/20 Atorvastatin [Lipitor] 20 mg ORAL DAILY 11/29/20 11/29/20 Calcium Carbonate [Calcium Antacid] 400 mg PO DAILY 11/29/20 11/29/20 Cholecalciferol [Vitamin D3] 2,000 unit PO DAILY 11/29/20 11/29/20 Triamterene/Hydrochlorothiazid 1.5 tab ORAL DAILY 11/29/20 11/29/20 [Maxzide 37.5 mg-25 mg Tablet] - Allergies Allergies/Adverse Reactions: Allergies Allergy/AdvReac Type Severity Reaction Status Date / Time No Known Drug Allergies Allergy Verified 11/29/20 16:50 - Social History Does the pt smoke?: No Smoking Status: Never smoker Does the pt drink ETOH?: No Does the pt have substance abuse?: No - Immunizations Immunizations are current?: Yes - POLST Patient has POLST: No PD ED PE NORMAL - Vitals Vital signs reviewed: Yes - General General: Alert and oriented X 3, No acute distress, Well developed/nourished - HEENT HEENT: Atraumatic, PERRL, Ears normal, Moist mucous membranes, Pharynx benign - Neck Neck: Supple, no meningeal sign, No bony TTP, No JVD, No bruit - Cardiac Cardiac: RRR, No murmur, Strong equal pulses - Respiratory Respiratory: No respiratory distress, Clear bilaterally - Abdomen Abdomen: Soft, Non tender, Non distended - Back Back: No CVA TTP, No spinal TTP - Derm Derm: Warm and dry - Extremities Extremities: No edema, No calf tenderness / cord - Neuro Neuro: Alert and oriented X 3, box toe buffer 2-12 intact, Normal speech, Other (4-5 strength in the left upper extremity and left lower extremity. Mild decrease sensation over the left arm and left leg.) - Psych Psych: Normal mood, Normal affect NIHSS - Time Time: 17:10 - Level of Consciousness Level of consciousness: (0) Alert, Keenly responsive LOC Questions: (0) Answers both Q's correct LOC Commands: (0) Performs both correctly - Gaze Best Gaze: (0) Normal - Visual Visual: (0) No loss - Facial Palsy Facial Palsy: (0) Normal, symmetrical movement - Motor Arms (both separate) Motor Arm (right): (0) No drift Motor Arm (left): (1) Drift - Motor Legs (both separate) Motor Leg (right): (0) No drift Motor Leg (left): (1) Drift - Limb Ataxia Limb Ataxia: (0) Absent - Sensory Sensory: (1) Kjlj-gn-irzrapkg loss - Best Language Best Language: (0) No aphasia - Dysarthria Dysarthria: (0) Normal - Extinction and Inattention (formally neg Extinction and inattention: (0) No abnormality - Total Score/Results Total Score/Result: 3 Results - Vitals Vitals: Vital Signs - 24 hr 11/29/20 11/29/20 11/29/20 16:42 17:35 18:23 Temperature 36.6 C 37.2 C 36.5 C Heart Rate 76 80 74 Respiratory 16 12 14 Rate Blood Pressure 142/82 H 145/79 H 135/70 H O2 Saturation 99 100 98 11/29/20 20:00 Temperature Heart Rate 66 Respiratory 14 Rate Blood Pressure 145/84 H O2 Saturation 99 Oxygen O2 Source Room air - EKG (time done) 1720 Rate: Rate (enter#) (70) Rhythm: NSR [place]: Normal Intervals: Normal NH QRS: Normal Ischemia: Normal ST segments - Labs Labs: Laboratory Tests 11/29/20 11/29/20 11/29/20 17:25 17:25 17:25 WBC 6.4 RBC 5.22 Hgb 15.2 Hct 44.9 MCV 86.0 MCH 29.1 MCHC 33.9 RDW 13.7 Plt Count 220 MPV 9.0 Neut # (Auto) 4.0 Lymph # (Auto) 1.9 [place] # (Auto) 0.4 Eos # (Auto) 0.1 Baso # (Auto) 0.1 Absolute Nucleated RBC 0.00 Nucleated RBC % 0.0 PT 12.4 INR 1.1 APTT 26.2 Sodium 136 Potassium 3.2 L Chloride 96 L Carbon Dioxide 29 Anion Gap 11.0 BUN 12 Creatinine 0.6 Estimated GFR (MDRD) 99 Glucose 102 H Calcium 9.8 Total Bilirubin 1.0 AST 29 ALT 28 Alkaline Phosphatase 54 Total Protein 7.8 Albumin 5.1 Globulin 2.7 Albumin/Globulin Ratio 1.9 Urine Color Urine Clarity Urine pH Ur Specific [place] Urine Protein Urine Glucose (UA) Urine Ketones Urine Occult Blood Urine Nitrite Urine Bilirubin Urine Urobilinogen Ur Leukocyte Esterase Ur Microscopic Review Urine Culture Comments Nasal Adenovirus (PCR) Nasal B. parapertussis DNA (PCR) Nasal Coronavir 229E PCR Nasal Coronavir HKU1 PCR Nasal Coronavir NL63 PCR Nasal Coronavir OC43 PCR Nasal Enterovir/Rhinovir PCR Nasal Influenza B PCR Nasal Influenza A PCR Nasal Parainfluen 1 PCR Nasal Parainfluen 2 PCR Nasal Parainfluen 3 PCR Nasal Parainfluen 4 PCR Nasal RSV (PCR) Nasal B.pertussis DNA PCR Nasal C.pneumoniae (PCR) [place] Human Metapneumo PCR Nasal M.pneumoniae (PCR) Nasal SARS-CoV-2 (PCR) 11/29/20 11/29/20 17:50 18:50 WBC RBC Hgb Hct MCV MCH MCHC RDW Plt Count MPV Neut # (Auto) Lymph # (Auto) [place] # (Auto) Eos # (Auto) Baso # (Auto) Absolute Nucleated RBC Nucleated RBC % PT INR APTT Sodium Potassium Chloride Carbon Dioxide Anion Gap BUN Creatinine Estimated GFR (MDRD) Glucose Calcium Total Bilirubin AST ALT Alkaline Phosphatase Total Protein Albumin Globulin Albumin/Globulin Ratio Urine Color YELLOW Urine Clarity CLEAR Urine pH 6.0 Ur Specific [place] 1.015 Urine Protein NEGATIVE Urine Glucose (UA) NEGATIVE Urine Ketones NEGATIVE Urine Occult Blood NEGATIVE Urine Nitrite NEGATIVE Urine Bilirubin NEGATIVE Urine Urobilinogen 0.2 (NORMAL) Ur Leukocyte Esterase NEGATIVE Ur Microscopic Review NOT INDICATED Urine Culture Comments NOT INDICATED Nasal Adenovirus (PCR) NOT DETECTED Nasal B. parapertussis DNA (PCR) NOT DETECTED Nasal Coronavir 229E PCR NOT DETECTED Nasal Coronavir HKU1 PCR NOT DETECTED Nasal Coronavir NL63 PCR NOT DETECTED Nasal Coronavir OC43 PCR NOT DETECTED Nasal Enterovir/Rhinovir PCR NOT DETECTED Nasal Influenza B PCR NOT DETECTED Nasal Influenza A PCR NOT DETECTED Nasal Parainfluen 1 PCR NOT DETECTED Nasal Parainfluen 2 PCR NOT DETECTED Nasal Parainfluen 3 PCR NOT DETECTED Nasal Parainfluen 4 PCR NOT DETECTED Nasal RSV (PCR) NOT DETECTED Nasal B.pertussis DNA PCR NOT DETECTED Nasal C.pneumoniae (PCR) NOT DETECTED [place] Human Metapneumo PCR NOT DETECTED Nasal M.pneumoniae (PCR) NOT DETECTED Nasal SARS-CoV-2 (PCR) NOT DETECTED - Rads (name of study) CT angiogram of the head Radiology: Prelim report reviewed, EMP read contemporaneously, See rad report CT angiogram of the neck Radiology: Prelim report reviewed, EMP read contemporaneously, See rad report PD MEDICAL DECISION MAKING - ED course Complexity details: reviewed results, re-evaluated patient, considered differential, d/w patient, d/w family, d/w advertising consultant ED course: Patient with intermittent weakness and numbness to the left arm and left leg over the past few days. Lasted about 5 hours today. Asymptomatic in the emergency department. Concerning for possible TIA. Given aspirin here after negative CT angiogram of the head and neck. We will place in observation for MRI and further work-up. Discussed the case with the hospitalist, Dr. Dominguez who accepts This document was made in part using voice recognition software. While efforts are made to proofread this document, sound alike and grammatical errors may occur. Ct angio neck IMPRESSION: 1. Mild bilateral proximal internal carotid artery plaque without stenosis. 2. Mild centrilobular emphysema in the lung apices. 3. 0.9 cm left lobe thyroid nodule. 4. Otherwise unremarkable CTA neck. CT angio head: IMPRESSION: 1. No evidence acute stroke, hemorrhage, or mass. 2. Unremarkable CTA head. No evidence of stenosis, aneurysm, occlusion, or focal filling defect. Departure - Departure Disposition: ED Place in Observation Clinical Impression: TIA (transient ischemic attack) Condition: Stable
[2020-11-29 17:49] LABS: INR 1.1 (0.8-1.2); PT - PROTHROMBIN TIME 12.4 secs (9.9-12.6)
[2020-11-29] MEDS ORDERED: IOVERSOL 320 100 ML VIAL IVP ONE ×2 (17:54→19:28)
[2020-11-29 17:56] LABS: PARTIAL THROMBOPLASTIN TIME 26.2 secs (24.9-33.3)
[2020-11-29 17:58] LABS: BILIRUBIN,URINE NEGATIVE (NEGATIVE); GLUCOSE, URINE (UA) NEGATIVE (NEGATIVE); KETONES,URINE (UA) NEGATIVE (NEGATIVE); LEUKOCYTE ESTERASE, URINE NEGATIVE (NEGATIVE); NITRITE,URINE NEGATIVE (NEGATIVE); OCCULT BLOOD,URINE NEGATIVE (NEGATIVE); PROTEIN,URINE NEGATIVE (NEGATIVE); UROBILINOGEN,URINE 0.2 (NORMAL) E.U./dL (NORMAL)
[2020-11-29 17:59] LABS: CLARITY,URINE CLEAR (CLEAR)
[2020-11-29] MEDS ORDERED: ASPIRIN CHEW 81 MG TABLET PO STA (18:43)
--- NOTE | 2020-11-29 18:44 | CT Report ---
PROCEDURE: ANGIO HEAD W/WO INDICATIONS: L sided weakness x 5 hours CONTRAST: IV CONTRAST: Optiray 320 ml: 80 PO CONTRAST: *NO PO CONTRAST TECHNIQUE: Precontrast 4.5 mm thick angled axial sections acquired from the foramen magnum to the vertex. Afte r the administration of intravenous contrast, 1 mm thick sections acquired through the [place] is. Postcontrast 4.5 mm thick sections then re-acquired from the foramen magnum to the vertex. 3-di mensional mnaufgs-gcvanseyu-rfxziyuuuz (MIP) and/or volume rendering reformats were acquired of the c entral intracranial vasculature. For radiation dose reduction, the following was used: automated ex posure control, adjustment of mA and/or kV according to patient size. COMPARISON: CT head dated 03/23/2019 FINDINGS: Image quality: Excellent. Anterior circulation: Intracranial internal carotid arteries are normal in size and flow. The flow within the paired anterior cerebral arteries is normal and symmetric. The flow within the middle cer ebral arteries is normal and symmetric. The anterior communicating artery is seen. No aneurysms are seen. Posterior circulation: Visualized portions of the vertebral arteries demonstrate normal caliber, and join to form a normal appearing basilar artery. Flow within the posterior cerebral arteries is norm al and symmetric. No aneurysms are seen. CSF spaces: Ventricles are normal in size and shape. Basal cisterns are patent. No extra-axial flu id collections. Brain: No midline shift. No intracranial bleeds or masses. Drake-white matter interface appears int act. Skull and face: Calvarium and facial bones appear intact, without suspicious lesions. Sinuses: Visualized sinuses and mastoids are clear. IMPRESSION: 1. No evidence acute stroke, hemorrhage, or mass. 2. Unremarkable CTA head. No evidence of stenosis, aneurysm, occlusion, or focal filling defect. Above discussed with REBECCA PRIEST at the time of dictation on 11/29/2020 at 1845 hours. Reviewed by: Antolin Rosales MD on 11/29/2020 6:42 PM PDT Approved by: Antolin Rosales MD on 11/29/2020 6:42 PM PDT Station ID: [id number]
--- NOTE | 2020-11-29 18:44 | CT Report ---
PROCEDURE: ANGIO NECK W INDICATIONS: L sided weakness x 5 hours CONTRAST: IV CONTRAST: Optiray 320 ml: 80 PO CONTRAST: *NO PO CONTRAST TECHNIQUE: After the administration of intravenous contrast, 1.5 mm axial sections acquired from the aortic arch to the [place]. Coronal 3-D maximum intensity projection (MIP) and/or volume rendering ref ormats were then performed. For radiation dose reduction, the following was used: automated exposur e control, adjustment of mA and/or kV according to patient size. COMPARISON: CT angiogram of the head from the same date. FINDINGS: Image quality: Excellent. Carotid system: The great vessels demonstrate a conventional anatomy as they arise from the aortic a rch. The origins of the common carotid arteries appear patent. The common carotid arteries demonstr ate normal calibers and courses. Mild carotid bifurcation plaque. Mild bilateral proximal internal ca rotid artery plaque without stenosis. Posterior circulation: The origins of the vertebral arteries appear patent. The more superior porti ons of the vertebral arteries demonstrate normal course and caliber. They join to form a normal appe aring basilar artery. Soft tissues: Visualized neck soft tissues demonstrate no suspicious abnormalities. There is a 1 cm posterior left thyroid nodule. Bones: No suspicious bony lesions. Visualized cervical spine appears normally aligned. IMPRESSION: 1. Mild bilateral proximal internal carotid artery plaque without stenosis. 2. Mild centrilobular emphysema in the lung apices. 3. 0.9 cm left lobe thyroid nodule. 4. Otherwise unremarkable CTA neck. Comment: Please refer to a separate report for CTA Head findings. Above discussed with REBECCA PRIEST at the time of dictation on 11/29/2020 at 1845 hours. The estimate of stenosis included in the report of the imaging study was calculated using the NASCET method CLINICAL RECOMMENDATION STATEMENTS: In patients <35 years with an ITN detected on CT, MRI, or extrathyroidal ultrasound, the Committee re commends further evaluation with dedicated thyroid ultrasound if the nodule is ?1 cm and has no suspi cious imaging features, and if the patient has normal life expectancy. In patients ?35 years with an ITN detected on CT, MRI, or extrathyroidal ultrasound, the Committee re commends further evaluation with dedicated thyroid ultrasound if the nodule is ?1.5 cm and has no nacho picious imaging features, and if the patient has normal life expectancy. (ACR, 2014) Reviewed by: Antolin Rosales MD on 11/29/2020 6:43 PM PDT Approved by: Antolin Rosales MD on 11/29/2020 6:43 PM PDT Station ID: [id number]
[2020-11-29 19:47] LABS: B. PARAPERTUSSIS- RESP PCR PAN NOT DETECTED; B. PERTUSSIS- RESP PCR PANEL NOT DETECTED; C. PNEUMONIAE- RESP PCR PANEL NOT DETECTED; CORONAVIRUS 229E-RESP PCR NOT DETECTED; CORONAVIRUS HKU1-RESP PCR NOT DETECTED; CORONAVIRUS NL63-RESP PCR NOT DETECTED; CORONAVIRUS OC43-RESP PCR NOT DETECTED; HUMAN METAPNEUMOVIRUS NOT DETECTED; INFLUENZA A- RESP PCR PANEL NOT DETECTED; INFLUENZA B - RESP PCR PANEL NOT DETECTED; M. PNEUMONIAE- RESP PCR PANEL NOT DETECTED; PARAINFLUENZA VIRUS 1 NOT DETECTED; PARAINFLUENZA VIRUS 2 NOT DETECTED; PARAINFLUENZA VIRUS 3 NOT DETECTED; PARAINFLUENZA VIRUS 4 NOT DETECTED; RHINOVIRUS/ENTEROVIRUS NOT DETECTED; RSV- RESP PCR PANEL NOT DETECTED; SARS-CoV-2 -RESP PCR PANEL NOT DETECTED
[2020-11-29] MEDS ORDERED: SODIUM CHLORIDE FLUSH 0.9% 10 ML SYRINGE IVP PRN (20:31)
[2020-11-29] MEDS ORDERED: MORPHINE 2 MG/ML CARPUJECT IVP PRN (20:31)
[2020-11-29] MEDS ORDERED: ONDANSETRON ODT 4 MG TABLET TL PRN (20:31)
[2020-11-29] MEDS ORDERED: oxyCODONE 5 MG TABLET PO PRN (20:31)
[2020-11-29] MEDS ORDERED: ONDANSETRON 4 MG/2 ML VIAL IVP PRN (20:31)
[2020-11-29] MEDS ORDERED: MECLIZINE 12.5 MG TABLET PO PRN (20:35)
--- NOTE | 2020-11-29 20:47 | HISTORY & PHYSICAL EXAMINATION ---
Chief Complaint - Chief Complaint Chief Complaint: left arm, left leg weak w/speech def History of Present Illness - Admitted From Admitted From:: Home via ER - History Obtained From Records Reviewed: [facility] History obtained from: patient and Dr. Davidson Exam Limitations: none - History of Present Illness HPI Comment/Other: Patient is a 69-year-old white female whose risk factors for stroke are hypertension, age, hyperlipidemia and a positive family history. She does not smoke and she is not a diabetic. She says that greater than 12 years ago she had a similar episode and was seen in the emergency room here in our hospital. But she was now placed in observation and she really does not recall what happened after that. With this episode, she recently moved into a new house 10 months ago. A week ago she noticed a smell that was "off" and was getting worse and worse throughout the week. She thinks that a rodent or some small animal in a wall somewhere and that was the cause of the smell. But at the same time she started feeling "yucky". She has a long history of vertigo and just felt more off balance than usual. More lightheaded. Not nauseated. She felt "shaky inside". About 7 days ago she woke up 1 morning to get up to go to the bathroom and her left arm felt numb. She could not use it, could not move it. She had to use her right arm to move her left arm. She went to the bathroom, got up. Had no weakness of her legs, no ataxia. She rubbed it and it felt better. So she went back to sleep. She had a second episode while she was driving her car. Again involves only her left arm and it lasted about 30 minutes and then went away. Today, she was writing at her desk. "I like to write letters a lot". While she was writing her letters, her left arm got heavier and heavier. And as she sat there she realized that her left foot was also falling asleep and feeling numb. She denied amaurosis. Palpitations were present only when she got here in the emergency room. She felt like she was falling backwards. Vision was slightly blurred and foggy but no actual loss of vision. She has had a headache all this week that has been getting gradually worse. She was evaluated by Dr. Mcmahan. Temperature was 36.6. Pulse was 76. She was sinus on telemetry. Blood pressure 142/82. Respirations 16 and she was 99% on room air. Dr. Mcmahan did not find any focal neurological deficits. CT of the head was negative for acute stroke, as was CT angiogram. Her labs are overall normal. Dr. Mcmahan is asking that this patient be placed in observation for TIA work-up. History - Past Medical History Cardiovascular: reports: Hypertension, High cholesterol Respiratory: reports: None Neuro: reports: TIA (Greater than 12 years ago), Headaches (Off and on. No diagnosis of migraines), Other (Vertigo) Endocrine/Autoimmune: reports: None GI: reports: GERD, Chronic diarrhea, Chronic constipation, Cholelithiasis [employer]: reports: Ovarian cysts, Other () : reports: None HEENT: reports: Other (wears glasses) Psych: reports: Depression (situation w of 1st ) Musculoskeletal: reports: Osteoarthritis, Osteoporosis (fall w left wrist fx 8 mon ago) Derm: reports: Other MRSA Hx?: No Other Past Medical History: IBS - Past Surgical History General: reports: Colonoscopy, EGD, Other (right inguinal hernia repair) Ortho: reports: Rotator cuff repair /[employer]UK[employer]: reports: Tubal ligation, Hysterectomy, Oophrectomy, Other (each breast w cyst excision) HEENT: reports: Rhinoplasty (for deviated septum) - Family & Social History Family History Comment/Other: Her mom at age 33 due to a heart attack. But she had antecedent valvular heart disease. Probably rheumatic heart. Dad at age 52 of a heart attack. Of 5 siblings one is of melanoma. One s farzana has diabetes. The other siblings are healthy. She denies a history of diabetes, hypertension, heart attack, stroke, cancer. Her 2 children are completely healthy and have no medical illnesses. Living arrangement: At home Living Situation: With spouse/s.o. 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 Then to [place]. She her who is a [place] 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 Her 12 years ago. She has been with a significant other for the last 11 years but not to him. She never smoked. She has no history of alcohol abuse. She has no history of recreational substance abuse. - Substance History Use: Uses substance without health or social issues: NONE Abuse: Recurrent use of substance despite neg consequences: NONE Dependence: Experiences withdrawal or developed tolerances: NONE - POLST Patient has POLST: No POLST Status: Full Code Meds/Allgy - Home Medications Home Medications: Ambulatory Orders Medication Instructions Recorded Confirmed Potassium Chloride [K-Dur] 20 meq PO BID 10/09/16 11/29/20 Meclizine [Antivert] 25 mg PO Q6H PRN #30 tablet 03/23/19 11/29/20 Ondansetron Odt [Zofran] 4 mg TL Q6H PRN #10 tablet 03/23/19 11/29/20 Amlodipine Besylate [Norvasc] 10 mg PO DAILY 11/29/20 11/29/20 Atorvastatin [Lipitor] 20 mg ORAL DAILY 11/29/20 11/29/20 Calcium Carbonate [Calcium Antacid] 400 mg PO DAILY 11/29/20 11/29/20 Cholecalciferol [Vitamin D3] 2,000 unit PO DAILY 11/29/20 11/29/20 Triamterene/Hydrochlorothiazid 1.5 tab ORAL DAILY 11/29/20 11/29/20 [Maxzide 37.5 mg-25 mg Tablet] - Allergies Allergies/Adverse Reactions: Allergies Allergy/AdvReac Type Severity Reaction Status Date / Time No Known Drug Allergies Allergy Verified 11/29/20 16:50 Review of Systems - Constitutional Constitutional: denies: Fatigue, Fever, Chills, Malaise, Weakness, Night sweats - Eyes Eyes: reports: Blurred vision. denies: Pain, Irritation, Amaurosis, Field loss, Vision loss - Ears, Nose & Throat Ears, Nose & Throat: reports: Hearing loss, Vertigo. denies: Ear pain, Hearing aids, Tinnitus, Nasal pain, Nasal discharge, Nasal obstruction, Nasal congestion - Cardiovascular Cariovascular: reports: Palpitations (only in the ER), Lightheadedness. denies: Irregular heart rate, Chest pain, Edema, Syncope, Exertional dyspnea, Decr. exercise tolerance - Respiratory Respiratory: denies: Cough, Sputum production, Wheezing, Snoring, Orthopnea, SOB at rest, SOB with exertion - Gastrointestinal Gastrointestinal: reports: Constipation, Diarrhea. denies: Change in bowel habits - Genitourinary Genitourinary: denies: Dysuria, Frequency, Urgency, Incontinence - Musculoskeletal Musculoskeletal: reports: Stiffness, Joint pain (left wrist, finger joints getting deformed but no pain). denies: Muscle pain, Back pain, Muscle aches - Integumentary Integumentary: denies: Rash, Pruritis, Lesions - Neurological Neurological: reports: Focal weakness, Headache, Dizziness, Numbness, Memory problems (today). denies: General weakness, Pre-existing deficit, Abnormal gait - Psychiatric Psychiatric: denies: Depression, Anxiety, Suicidal, Delusions - Endocrine Endocrine: denies: Polyuria, Polydypsia, Polyphagia - Hematologic/Lymphatic Hematologic/Lymphatic: denies: Anemia, Bruising, Petechiae, Blood clots Prior Level of Functionality: She regards her self is completely independent with activities of daily living. She still drives a car, does housework, pays bills Exam - Vital Signs Reviewed Vital Signs: Yes Vital Signs: Vital Signs x48h Temp Pulse Resp BP Pulse Ox 11/29/20 20:00 66 14 145/84 H 99 11/29/20 18:23 36.5 C 74 14 135/70 H 98 11/29/20 17:35 37.2 C 80 12 145/79 H 100 11/29/20 16:42 36.6 C 76 16 142/82 H 99 - Physical Exam General Appearance: positive: No acute distress, Alert, Other (White female who looks her stated age, 5 feet 10 inches tall and weighs 83.9 kg) Eyes Bilateral: positive: PERRL, EOMI, Other ENT: positive: No signs of dehydration Neck: positive: No JVD. negative: Stiff neck Cardiovascular: positive: No murmur (Wearing glasses) Skin: positive: Warm, Dry Extremities: positive: Full ROM Neurologic/Psychiatric: positive: Oriented x3, CN's nml (2-12), Motor nml, Sensation nml Conclusion/Plan - Problem List (1) TIA (transient ischemic attack) Conclusion/Plan: Risk factors for this unfortunate female are high. She has hypertension, age, hyperlipidemia, and a positive family history. CT of the head is currently negative. Plan: Observation status Echocardiogram Telemetry MRI of the head Double platelet therapy with aspirin and Plavix for minimum of 30 days. She will need to discuss double platelet therapy with her primary care provider and they will need to decide to go either on aspirin only or Plavix only (2) Hypertension Conclusion/Plan: Permissive hypertension in the next 48 hours. Her systolic is very between 142- 151 today. She is on triamterene hydrochlorothiazide and amlodipine at home. Both of those medications will be continued. However her blood pressure will be monitored closely. If she starts to get below 140 on a regular basis I may hold her medications for 48 hours. Qualifiers: Hypertension type: essential hypertension Qualified Code(s): I10 - Essential (primary) hypertension (3) Osteoporosis Conclusion/Plan: Or twice a year Prolia permissive hypertension in the next 48 hours. Her systolic is very between 142-151 today. She is on triamterene hydro chlorothiazide and amlodipine at home. Both of those medications will be continued. However her blood pressure will be monitored closely. If she starts to get below 140 on a regular basis I may hold her medications for 48 hours. Qualifiers: Osteoporosis type: age-related (4) Left thyroid nodule Conclusion/Plan: Incidental finding on CT of the neck. She will need work-up in the outpatient setting to make sure she does not have neoplasm. (5) Centrilobular emphysema Conclusion/Plan: Asymptomatic. She has no history of asthma or emphysema or smoking. Is a natural process of aging occurs, she may become symptomatic with wheezing. Would suggest routine follow-up with primary care provider. Would recommend outpatient pulmonary function studies with [facility]. (6) Hypokalemia Conclusion/Plan: Is likely due to the new diuretic therapy that was started in the last 1 to 2 months. She will be supplemented orally and recheck tomorrow morning. - Lab Results Lab results reviewed: Yes Fish Bones: 11/29/20 17:25 11/29/20 17:25 - Diagnostic Imaging Results Diagnostic Imaging Results: positive: Final report reviewed Diagnostic Imaging Results Comments: CT of the head is without evidence of acute stroke, hemorrhage, or mass. Angiogram has unremarkable anatomy. No evidence of stenosis, aneurysm, occlusion or focal filling defect. Neck CT angiogram has mild bilateral proximal internal carotid artery plaquing without stenosis. Interesting mild centrilobular emphysema in the lung apices. A 0.9 cm left lobe thyroid nodule. - EKG Results EKG Interpreted Independently: Yes EKG Comparison: No prior EKG EKG Findings: Normal sinus rhythm with normal axis and normal intervals. Nonspecific ST depression V2 through V6. The nonspecific depression is new from a 2019 EKG.
--- OUTSIDE RECORDS SUMMARY | 2020-11-29 20:48 | EXTERNAL MEDICAL SUMMARY RPT | Continuity of Care Document ---
:1950 Demographics Phone Unavailable Preferred Language Unknown Marital Status Unknown Worship Affiliation Unknown Race Unknown Ethnic Group Unknown Author Organization [place] Address [address] [phone] Phone Allergies Encounters Medications Problems Results
[2020-11-29] MEDS: POTASSIUM CHLORIDE 20 MEQ TABLET PO SCH (21:59)
[2020-11-30] MEDS: SODIUM CHLORIDE FLUSH 0.9% 10 ML SYRINGE IVP SCH ×2 (00:07→09:00)
[2020-11-30] MEDS: ACETAMINOPHEN 325 MG TABLET PO PRN ×2 (04:33→09:32)
[2020-11-30] MEDS ORDERED: ASPIRIN 325 MG TABLET PO SCH (08:00)
[2020-11-30] MEDS: POTASSIUM CHLORIDE 20 MEQ TABLET PO SCH (08:59)
[2020-11-30] MEDS ORDERED: amLODIPine 5 MG TABLET PO SCH (09:00)
[2020-11-30] MEDS ORDERED: CLOPIDOGREL 75 MG TABLET PO SCH (09:00)
[2020-11-30] MEDS ORDERED: ENOXAPARIN 40 MG/0.4 ML SYRINGE SUBQ SCH (09:00)
[2020-11-30 09:08] LABS: BASOPHILS % (AUTO) 0.7 %; EOSINOPHILS # (AUTO) 0.2 10^3/uL (0.0-0.7); EOSINOPHILS % (AUTO) 3.4 %; HCT - HEMATOCRIT 46.2 % (37.0-47.0); HGB - HEMOGLOBIN 15.1 g/dL (12.0-16.0); LYMPHOCYTES # (AUTO) 1.8 10^3/uL (1.5-3.5); LYMPHOCYTES % (AUTO) 32.5 %; MEAN CORPUSCULAR HEMOGLOBIN 28.7 pg (27.0-31.0); MEAN CORPUSCULAR HGB CONC 32.7 g/dL (32.0-36.0); MEAN CORPUSCULAR VOLUME 87.7 fL (81.0-99.0); MEAN PLATELET VOLUME 9.1 fL (7.9-10.8); MONOCYTES # (AUTO) 0.4 10^3/uL (0.0-1.0); MONOCYTES % (AUTO) 6.4 %; NEUTROPHILS # (AUTO) 3.2 10^3/uL (1.5-6.6); NEUTROPHILS % (AUTO) 56.8 %; PLT - PLATELET COUNT 223 10^3/uL (130-450); RED BLOOD COUNT 5.27 10^6/uL (4.20-5.40); RED CELL DISTRIBUTION WIDTH 13.8 % (12.0-15.0); WHITE BLOOD COUNT 5.6 x10^3/uL (4.8-10.8)
--- NOTE | 2020-11-30 09:16 | MRI Report ---
PROCEDURE: Brain W/O INDICATIONS: TIA TECHNIQUE: Noncontrast axial T1 spin echo, axial T2 fast spin echo, sagittal and axial FLAIR, coronal T2 fast sp in echo, axial gradient echo, axial diffusion and ADC through the brain. COMPARISON: 06/03/2019 MRI brain FINDINGS: Image quality: Excellent. CSF Spaces: Basal cisterns are patent. No extra-axial fluid collections. Ventricles are normal in size and shape. Brain: Chronic microvascular ischemic changes and mild global cerebral volume loss are similar to the prior study. There is no restricted diffusion to indicate recent ischemia. The major intracranial va scular flow related signal voids are maintained. No abnormal intracranial susceptibility. Midline str uctures are normal in configuration. Skull and face: Calvarium has normal marrow signal. Orbits appear normal. Sinuses: Moderate bilateral mastoid air cell effusions. Paranasal sinuses are predominantly clear. IMPRESSION: No infarct or other acute intracranial abnormality. Mild global cerebral volume loss and chronic microvascular ischemic changes, similar to 06/03/2019 co mparison Reviewed by: Lebron Santiago MD on 11/30/2020 9:14 AM PDT Approved by: Lebron Santiago MD on 11/30/2020 9:14 AM PDT Station ID: [id number]
[2020-11-30 09:23] LABS: CREATININE 0.6 mg/dL (0.4-1.0); POTASSIUM 3.4 mmol/L (3.5-5.0)
[2020-11-30 09:56] LABS: CHOL/HDL RATIO 2.5 (<4.4); CHOLESTEROL 196 mg/dL; HDL CHOLESTEROL 77 mg/dL; LDL CHOLESTEROL,CALCULATED 102 mg/dL; LDL/HDL RATIO 1.3 (<4.4); TRIGLYCERIDES 86 mg/dL; VLDL CHOLESTEROL 17 mg/dL
[2020-11-30] MEDS ORDERED: TRIAMT/HCTZ 37.5 MG/25 MG CAPSULE PO SCH (10:00)
--- NOTE | 2020-11-30 10:02 | PHARMACY PROGRESS NOTE ---
- Best Possible Medication History Admit Date and Time: 11/29/202030 Processed by: Nursing Medication History completed: Yes Secondary Source(s): Insurance records Med list confirmed by RN As the person ultimately responsible for medication therapy, providers are able to order a medication from an existing home medication list in [facility] via the "Reconcile Routine" prior to Confirmation of that medication by sales support administrator. Such practice is discouraged except when the physician, in their clinical judgment, deems that a medical need exists for a medication without regard to previous use.
[2020-11-30] MEDS ORDERED: POTASSIUM CHLORIDE 20 MEQ TABLET PO ONE (11:36)
--- NOTE | 2020-11-30 13:19 | Discharge Plan ---
Discharge Plan Problem Reviewed?: Yes Disposition: Home, Self Care Condition: Stable Prescriptions: Aspirin [[place] Aspirin] 81 mg PO DAILY #30 tab.chew Diet: Regular Activity Restrictions: Activity as Tolerated Shower Restrictions: Yes (fall precaution) Instruction Topics: TIA, Atherosclerosis Aspirin Health Concerns: Image study including MRI of your brain show you have no acute stroke. PT/OT evaluated and treated for you. You are prescribed walker, baby aspirin, and out- pt PT/OT are recommended for you. CTA of neck found you have 0.9 cm left lobe thyroid nodule, you may followup with your PCP to monitor. Plan of Treatment: as the above Care Goals: stabilization and improvement of your medical conditions Assessment: discussed the care plan with you, answered your questions, you understood Additional Instructions or Follow Up instructions: You may followup with your PCP in one to two weeks, followup with neurologist as out-pt. Should your symptoms return or worsen, you may present ER or call 911 Follow-Up Care: Outpatient Rehab - PT, Outpatient Rehab - OT No Smoking: If you smoke, Please STOP! Call for help. Follow-up with: AMARILIS ROONEY MD [Primary Care Provider] -
--- NOTE | 2020-11-30 13:27 | DISCHARGE SUMMARY ---
Discharge Summary Admit Date: 11/29/20 Discharge Date: 11/30/20 Discharging Provider: Shaq Dunbar Primary Care Provider: Jacquelyn Schreiber Condition at Discharge: Stable Discharge Disposition: 01 Home, Self Care Discharge Facility Name: home - DIAGNOSES Discharge Diagnoses with Status of Each Condition: (1) TIA (transient ischemic attack) MRI of brain show no acute stroke. CTA of head, neck and ECHO show unremarkable. pt's symptoms had significantly improved. PT/OT evaluated and treated for pt. pt walked about 100 feet with good balance and strength. pt is recommended d/c to home and have out-pt PT/OT, and prescribed Walker. pt is prescribed baby aspirin. pt may followup with neurologist as out-pt (2) Hypertension stable. resume home meds (3) Left thyroid nodule Incidental finding on CT of the neck. pt may followup with her PCP in the outpatient setting to make sure she does not have neoplasm. (4) hx of vertigo pt report she had hx of vertigo, she had home meds Meclizine PRN. pt may followup with neurologist as out-pt (5) Hypokalemia replaced, resume home potassium. (6) Centrilobular emphysema Asymptomatic. pt may follow-up with primary care provider to have outpatient pulmonary function studies with [facility]. - HPI History of Present Illness: refer from Dr. Dominguez's HPI on 11/29/20 Patient is a 69-year-old white female whose risk factors for stroke are hypertension, age, hyperlipidemia and a positive family history. She does not smoke and she is not a diabetic. She says that greater than 12 years ago she had a similar episode and was seen in the emergency room here in our hospital. But she was now placed in observation and she really does not recall what happened after that. With this episode, she recently moved into a new house 10 months ago. A week ago she noticed a smell that was "off" and was getting worse and worse thro ughout the week. She thinks that a rodent or some small animal in a wall somewhere and that was the cause of the smell. But at the same time she started feeling "yucky". She has a long history of vertigo and just felt more off balance than usual. More lightheaded. Not nauseated. She felt "shaky inside". About 7 days ago she woke up 1 morning to get up to go to the bathroom and her left arm felt numb. She could not use it, could not move it. She had to use her right arm to move her left arm. She went to the bathroom, got up. Had no weakness of her legs, no ataxia. She rubbed it and it felt better. So she went back to sleep. She had a second episode while she was driving her car. Again involves only her left arm and it lasted about 30 minutes and then went away. Today, she was writing at her desk. "I like to write letters a lot". While she was writing her letters, her left arm got heavier and heavier. And as she sat there she realized that her left foot was also falling asleep and feeling numb. She denied amaurosis. Palpitations were present only when she got here in the emergency room. She felt like she was falling backwards. Vision was slightly blurred and foggy but no actual loss of vision. She has had a headache all this week that has been getting gradually worse. She was evaluated by Dr. Mcmahan. Temperature was 36.6. Pulse was 76. She was sinus on telemetry. Blood pressure 142/82. Respirations 16 and she was 99% on room air. Dr. Mcmahan did not find any focal neurological deficits. CT of the head was negative for acute stroke, as was CT angiogram. Her labs are overall normal. Dr. Mcmahan is asking that this patient be placed in observation for TIA work-up. - HOSPITAL COURSE Hospital Course: pt was admitted for TIA with left side weakness. pt's CTA of head, neck, MRI of brain, ECHO all show unremarkable. Patient had PT and OT evaluation and treatment, patient walk about 100 feet with good balance and strength. Patient was discharged as hemodynamic stable condition. - ALLERGIES Allergies/Adverse Reactions: Allergies Allergy/AdvReac Type Severity Reaction Status Date / Time No Known Drug Allergies Allergy Verified 11/29/20 16:50 - MEDICATIONS Home Medications: Ambulatory Orders Medication Instructions Recorded Confirmed Potassium Chloride [K-Dur] 20 meq PO BID 10/09/16 11/29/20 Meclizine [Antivert] 25 mg PO Q6H PRN #30 tablet 03/23/19 11/29/20 Ondansetron Odt [Zofran Odt] 4 mg TL Q6H PRN #10 tablet 03/23/19 11/29/20 Amlodipine Besylate [Norvasc] 10 mg PO DAILY 11/29/20 11/29/20 Atorvastatin [Lipitor] 20 mg ORAL DAILY 11/29/20 11/29/20 Calcium Carbonate [Calcium Antacid] 400 mg PO DAILY 11/29/20 11/29/20 Cholecalciferol [Vitamin D3] 2,000 unit PO DAILY 11/29/20 11/29/20 Triamterene/Hydrochlorothiazid 1.5 tab ORAL DAILY 11/29/20 11/29/20 [Maxzide 37.5 mg-25 mg Tablet] Aspirin [[place] Aspirin] 81 mg PO DAILY #30 tab.chew 11/30/20 - PHYSICAL EXAM AT DISCHARGE General Appearance: positive: No acute distress, Alert. negative: Lethargic Eyes Bilateral: positive: Normal inspection, PERRL, No lid inflammation ENT: positive: ENT inspection nml, No signs of dehydration. negative: Purulent nasal drainage Neck: positive: Nml inspection, Trachea midline. negative: Thyromegaly, Tracheal deviation Respiratory: positive: Chest non-tender, No respiratory distress, Breath sounds nml. negative: Wheezes, Rales Cardiovascular: positive: Regular rate & rhythm, No murmur. negative: T achycardia, Bradycardia, Systolic murmur, Diastolic murmur Peripheral Pulses: positive: 2+ Abdomen: positive: Non-tender, Nml bowel sounds, No distention. negative: Tenderness Back: positive: Nml inspection. negative: CVA tenderness (R), CVA tenderness (L) Skin: positive: Color nml, Warm, Dry. negative: Cyanosis, Diaphoresis Extremities: positive: Non-tender, Full ROM, Nml appearance. negative: Calf tenderness Neurologic/Psychiatric: positive: Oriented x3, Motor nml, Sensation nml, Mood/affect nml. negative: Weakness, Sensory loss, Facial droop, Slurred/abnml speech, Depressed mood/affect - LABS Result Diagrams: 11/30/20 09:00 11/30/20 09:00 - FOLLOW UP Follow Up: Image study including MRI of your brain show you have no acute stroke. PT/OT evaluated and treated for you. You are prescribed walker, baby aspirin, and out- pt PT/OT are recommended for you. CTA of neck found you have 0.9 cm left lobe thyroid nodule, you may followup with your PCP to monitor. You may followup with your PCP in one to two weeks, followup with neurologist as out-pt. Should your symptoms return or worsen, you may present ER or call 911 - TIME SPENT Time Spent in Discharge (Minutes): 30
[2020-11-30 14:44] VITALS: BP 113/58
[2020-11-30] MEDS ORDERED: ATORVASTATIN 40 MG TABLET PO SCH (21:00)
[2020-11-30] MEDS ORDERED: ATORVASTATIN 10 MG TABLET PO SCH (21:00)
== END 2020-11-30 15:00 | disposition home or self-care (01) ==
LOC: ED 16:24 → UNDOADMOB 20:31 → MS2 20:31
PROVIDERS: ADMIT Specialist; ATTEND Nurse Practitioner Gerontology
DX: G45.9 Transient cerebral ischemic attack, unspecified (principal); I10 Essential (primary) hypertension; E04.1 Nontoxic single thyroid nodule; R42 Dizziness and giddiness; E87.6 Hypokalemia; J43.2 Centrilobular emphysema; E87.5 Hyperkalemia; K58.2 Mixed irritable bowel syndrome; K21.9 Gastro-esophageal reflux disease without esophagitis; H91.90 Unspecified hearing loss, unspecified ear; H54.7 Unspecified visual loss; M19.90 Unspecified osteoarthritis, unspecified site; M81.0 Age-related osteoporosis without current pathological fracture; Z20.822 Contact with and (suspected) exposure to COVID-19; Z79.899 Other long term (current) drug therapy; Z86.73 Personal history of transient ischemic attack (TIA), and cerebral infarction without residual deficits; Z82.49 Family history of ischemic heart disease and other diseases of the circulatory system
CPT/HCPCS: 36415; 70496; 70498; 70551; 80048; 80053; 80061; 81003; 85025; 85610; 85730; 87631; 93005; 93306; 96372; 97116; 97162; 97166; 99285; A9270; G0378; J1650; Q9967; 0202U; 81001; 83721; 87086

== ENCOUNTER 2022-10-10 13:46 | Outpatient (CLI) | payer MEDICARE, OTHER ==
--- NOTE | 2022-10-10 17:49 | DEXA Report ---
PROCEDURE: Dexa Spine and/or Hip INDICATIONS: POST MENOPAUSAL TECHNIQUE: Dual energy x-ray absorptiometry (DXA) was performed on a Ciplex System. Regions measur ed are the AP Spine, femoral neck, and if needed forearm. COMPARISON: None. FINDINGS: Lumbar Spine: Bone Mineral Density 1.007 g/cm/cm,T score -1.4, Left Femoral Neck: Bone Mineral Density 0.716 g/cm/cm, T score -2.3, Left Hip: Bone Mineral Density 0.768 g/cm/cm,T score -1.9, (T score greater or equal to -1.0: NORMAL) (T score from -1.1 to -2.4: OSTEOPENIA) (T score less than or equal to -2.5 to: OSTEOPOROSIS) Impression: Osteopenia. Patients with diagnosis of osteoporosis or osteopenia should have regular bone mineral density assess ment. For those eligible for Medicare, routine testing is allowed once every 2 years. Testing frequ ency can be increased for patients who have rapidly progressing disease or for those who are receivin g medical therapy to restore bone mass. Reviewed by: Rajinder Howard MD on 10/10/2022 5:48 PM PDT Approved by: Rajinder Howard MD on 10/10/2022 5:48 PM PDT Station ID: [id number]
== END 2022-10-10 13:47 | disposition home or self-care (01) ==
LOC: DI 13:46
PROVIDERS: ATTEND Student in an Organized Health Care Education/Training Program
DX: M85.89 Other specified disorders of bone density and structure, multiple sites (principal); Z78.0 Asymptomatic menopausal state

== ENCOUNTER 2023-09-12 07:15 | Day surgery (SDC) | payer MEDICARE, OTHER ==
[~2023-09-12 07:15] MED LIST changes: +PROPOFOL 500 MG/50 ML 0 MG/0 ML VIAL ONE; -ceFAZolin 2 GM/50 ML 2 GM/50 ML BAG IV ONE
[2023-09-12] MEDS ORDERED: MIDAZOLAM 2 MG/2 ML VIAL ONE (07:20)
[2023-09-12] MEDS: LACTATED RINGERS 1,000 ML IV ONE (07:25)
== END 2023-09-12 07:16 | disposition home or self-care (01) ==
LOC: SDS 07:15
PROVIDERS: ATTEND Surgery
DX: Z53.9 Procedure and treatment not carried out, unspecified reason (principal)

== ENCOUNTER 2023-09-13 12:31 | Day surgery (SDC) | payer MEDICARE, OTHER ==
[2023-09-13] MEDS ORDERED: PROPOFOL 500 MG/50 ML 500 MG/50 ML VIAL ONE (13:26)
[2023-09-13] MEDS ORDERED: LIDOCAINE-MPF 2% 5 ML VIAL ONE (13:26)
--- NOTE | 2023-09-13 13:34 | ANESTHESIA ---
Pre-Anesthesia VS, & Labs - Diagnosis history of polyps - Procedure colonoscopy Vital Signs: Temp Pulse Resp BP Pulse Ox O2 Flow Rate 36.8 C 81 17 151/72 H 96 09/13/23 12:40 09/13/23 12:40 09/13/23 12:40 09/13/23 12:40 09/13/23 12:40 Height: 5 ft 10 in Weight (kg): 80.7 kg Body Mass Index: 25.5 BMI Classification: Overweight - NPO Other (prep as directed) - Is Patient ?: No Home Medications and Allergies Amlodipine Besylate [Norvasc] 10 mg PO DAILY 11/29/20 Calcium Carbonate [Calcium Antacid] 400 mg PO DAILY 11/29/20 Cholecalciferol [Vitamin D3] 2,000 unit PO DAILY 11/29/20 Linaclotide [Linzess] 72 mcg PO DAILY 09/11/23 Allergies/Adverse Reactions: Allergies Allergy/AdvReac Type Severity Reaction Status Date / Time No Known Drug Allergies Allergy Verified 11/29/20 16:50 Anes History & Medical History - Anesthetic History Anesthesia Complications: reports: No previous complications - Medical History Cardiovascular: reports: Hypertension, High cholesterol Pulmonary: reports: None Gastrointestinal: reports: GERD, Chronic diarrhea, Chronic constipation, Cholelithiasis Urinary: reports: None Neuro: reports: TIA, Headaches, Other Musculoskeletal: reports: Osteoarthritis, Osteoporosis Endocrine/Autoimmune: reports: None Blood Disorders: reports: None Skin: reports: Other Smoking Status: Never smoker - Surgical History General: reports: Colonoscopy, EGD, Other Eyes Ears Nose Throat (EENT): reports: Rhinoplasty Gynecologic: reports: Tubal ligation, Hysterectomy, Oophrectomy, Other Orthopedic: reports: Rotator cuff repair Exam General: Alert, Oriented x3 Dental: WNL Mouth Opening: Greater than 4 Fingerbreadths Neck Mobility: Normal Mallampati classification: II Thyromental Distance: greater than 6 cm Respiratory: Lungs clear Cardiovascular: Regular rate Plan Anesthesia Type: Total IV Consent for Procedure(s) Verified and Reviewed: Yes Code Status: Attempt Resuscitation ASA classification: 2-Mild systemic disease Is this case an emergency?: No
--- NOTE | 2023-09-13 14:16 | HISTORY & PHYSICAL EXAMINATION ---
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 But she had antecedent valvular heart disease. Probably rheumatic heart. Dad at age 52 of a heart attack. Of 5 siblings one is of melanoma. One sibling has diabetes. The other siblings are healthy. She denies a history of diabetes, hypertension, heart attack, stroke, cancer. Her 2 children are completely healthy and have no medical illnesses. Living Situation: With spouse/s.o. 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 Then to [place]. She her who [place]. 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 Her 12 years ago. She has been with a significant other for the last 11 years but not to him. She never smoked. She has no history of alcohol abuse. She has no history of recreational substance abuse. - Substance History Use: Uses substance without health or social issues: NONE - POLST Patient has POLST: No POLST Status: Full Code Meds/Allgy - Home Medications Home Medications: Ambulatory Orders Medication Instructions Recorded Confirmed Meclizine [Antivert] 25 mg PO Q6H PRN #30 tablet 03/23/19 09/13/23 Amlodipine Besylate [Norvasc] 10 mg PO DAILY 11/29/20 09/13/23 Calcium Carbonate [Calcium Antacid] 400 mg PO DAILY 11/29/20 09/13/23 Cholecalciferol [Vitamin D3] 2,000 unit PO DAILY 11/29/20 09/13/23 Aspirin [[place] Aspirin] 81 mg PO DAILY #30 tab.chew 11/30/20 09/13/23 Linaclotide [Linzess] 72 mcg PO DAILY 09/11/23 09/13/23 - Allergies Allergies/Adverse Reactions: Allergies Allergy/AdvReac Type Severity Reaction Status Date / Time No Known Drug Allergies Allergy Verified 11/29/20 16:50 Review of Systems - Other Findings Other Findings: 10 pt ros as above otherwise unremarkable Exam - Vital Signs Vital Signs: Vital Signs x48h Temp Pulse Resp BP Pulse Ox 09/13/23 12:40 36.8 C 81 17 151/72 H 96 - Physical Exam General Appearance: positive: No acute distress, Alert Eyes Bilateral: positive: PERRL ENT: positive: No signs of dehydration Neck: positive: No JVD, Trachea midline Respiratory: positive: No respiratory distress Cardiovascular: positive: Regular rate & rhythm Abdomen: positive: No distention Neurologic/Psychiatric: positive: Oriented x3 Conclusion/Plan - Problem List (1) Colon cancer screening Conclusion/Plan: plan colonoscopy. parq held and consent obtained
[2023-09-13] MEDS: LACTATED RINGERS 1,000 ML IV ONE (14:54)
[2023-09-13 15:26] VITALS: BP 148/82; O2SAT 99
--- NOTE | 2023-09-13 15:32 | ANESTHESIA POST OP EVALUATION ---
Anesthesia Post Eval - Post Anesthesia Eval Vitals: Last Vital Signs Temp 36.5 C 09/13/23 14:54 Pulse 78 09/13/23 15:16 Resp 14 09/13/23 15:16 BP 148/82 H 09/13/23 15:16 Pulse Ox 99 09/13/23 15:16 O2 Flow Rate CV Function Including HR & BP: Stable Pain Control: Satisfactory Nausea & Vomiting: Negative Mental Status: Baseline Respiratory Status: Airway Patent Hydration Status: Satisfactory Anesthesia Complications: None
== END 2023-09-13 12:32 | disposition home or self-care (01) ==
LOC: SDS 12:31
PROVIDERS: ATTEND Surgery
PROC: 0DBH8ZZ Excision of Cecum, Via Natural or Artificial Opening Endoscopic (ICD-10-PCS; principal; 2023-09-13 13:30)
DX: Z12.11 Encounter for screening for malignant neoplasm of colon (principal); D12.0 Benign neoplasm of cecum
CPT/HCPCS: 45385; J7120